=== PATIENT | male | born 1970 | race Native Hawaiian/Other Pacific Islander ===

== ENCOUNTER 2017-06-05 07:24 | Inpatient (IN) | payer OTHER ==
[2017-06-05 07:24] VITALS: BMI 30.7
--- NOTE | 2017-06-05 07:38 | C.PDOC ---
History Of Present Illness 47 yo male with PMH left fransico-colectomy for removal of adenocarcinoma on 07/12 c /o abdominal pain since last night. 03/05. Took pepto last night without relief. BM soft yesterday. No complaints. No fever. Vomited x 1 yesterday. Scheduled for colonoscopy this week with Dr Schwartz. Time Seen by Provider: 06/05/17 07:35 Chief Complaint (Nursing): Abdominal Pain History Per: Patient History/Exam Limitations: no limitations Onset/Duration Of Symptoms: Days (yesterday) Current Symptoms Are (Timing): Still Present Location Of Pain/Discomfort: RUQ, LUQ Quality Of Discomfort: "Pain" Past Medical History Vital Signs: Last Vital Signs Temp 97.9 F 06/05/17 15:07 Pulse 81 06/05/17 15:07 Resp 16 06/05/17 15:07 BP 148/78 06/05/17 15:07 Pulse Ox 98 06/05/17 14:40 - Medical History PMH: Anemia, Anxiety, Colonic Polyps (CANCEROUS), Gastritis Denies: Crohn's Disease, Diverticulitis, Fractures, Gall Bladder Disease, HIV , Pancreatitis, Chronic Kidney Disease, TIA Surgical History: Endoscopy - [facility] Procedures RESECTION OF APPENDIX, OPEN APPROACH (07/12/16) RESECTION OF LEFT LARGE INTESTINE, OPEN APPROACH (07/12/16) Family History: States: Unknown Family Hx - Social History Hx Tobacco Use: No Hx Alcohol Use: No Hx Substance Use: No - Immunization History Hx Tetanus Toxoid Vaccination: No Hx Influenza Vaccination: No Hx Pneumococcal Vaccination: No Review Of Systems Except As Marked, All Systems Reviewed And Found Negative. Constitutional: Negative for: Fever Gastrointestinal: Positive for: Vomiting, Abdominal Pain Physical Exam - Physical Exam Appears: Well, Non-toxic, No Acute Distress Skin: Normal Color, Warm, Dry Head: Atraumatic, Normacephalic Eye(s): bilateral: Normal Inspection, EOMI Nose: Normal Oral Mucosa: Moist Neck: Normal, Normal ROM, Supple Chest: Symmetrical Cardiovascular: Rhythm Regular Respiratory: Normal Breath Sounds Gastrointestinal/Abdominal: Soft, Tenderness (upper quadrant tenderness) Back: No CVA Tenderness, No Vertebral Tenderness Extremity: Normal ROM Neurological/Psych: Oriented x3, Normal Speech ED Course And Treatment - Laboratory Results Result Diagrams: 06/05/17 08:01 10/10/17 08:01 O2 Sat by Pulse Oximetry: 98 Progress Note: Toradol, Zofran, and pepcid ordered. On re-evaluation, pain improved. CT evaluated. Case discussed with Dr Rg who evaluated pt at bedside and requested medical admission. Case discussed with Dr castelan, agreeed upon plan and admission. Case discussed with Dr Cisse, agreed upon consult. Disposition - Disposition Disposition: HOSPITALIZED Disposition Time: 15:00 Condition: STABLE - Clinical Impression Clinical Impression: Small bowel obstruction
[2017-06-05] MEDS ORDERED: Sodium Chloride 0.9% 1,000 ML IV ONE (07:46)
[2017-06-05] MEDS ORDERED: Iohexol 240 (50 ml) PO STA (07:46)
[2017-06-05] MEDS ORDERED: Iohexol 240 (50 ml) ONE (08:04)
[2017-06-05] MEDS ORDERED: Sodium Chloride 0.9% 1,000 ML ONE (08:05)
[2017-06-05 08:06] LABS: BASO % 0.2 % (0.0-2.0); EOS % 0.4 % (0.0-4.0); HEMATOCRIT 48.3 % (35.0-51.0); LYMPH # 1.5 K/uL (1.0-4.3); MEAN CELL VOLUME 83.8 fL (80.0-94.0); MEAN CORPUSCULAR HEMOGLOBIN 28.3 pg (27.0-31.0); MEAN CORPUSCULAR HGB CONC 33.7 g/dL (33.0-37.0); MEAN PLATELET VOLUME 8.3 fL (7.2-11.7); MONO # 0.6 K/uL (0.0-0.8); MONO % 5.1 % (0.0-10.0); RED CELL DISTRIBUTION WIDTH 13.1 % (11.5-14.5); WHITE BLOOD COUNT 12.2 K/uL (4.8-10.8)
[2017-06-05 08:29] LABS: CHLORIDE 99 mmol/L (98-107); POTASSIUM 3.8 mmol/L (3.6-5.2); SODIUM 139 mmol/L (132-148)
[2017-06-05 08:31] LABS: GFR AFRICAN-AMERICAN > 60
[2017-06-05 08:32] LABS: ALB/GLOB RATIO 1.1 (1.0-2.1); ALKALINE PHOSPHATASE 62 U/L (38-126); ALT/SGPT 42 U/L (21-72); AST/SGOT 32 U/L (17-59); BILIRUBIN,TOTAL 2.5 mg/dL (0.2-1.3); BLOOD UREA NITROGEN 14 mg/dL (9-20); CALCIUM 9.9 mg/dl (8.6-10.4); CARBON DIOXIDE 26 mmol/L (22-30); GLUCOSE,RANDOM 117 mg/dL (75-110); TOTAL PROTEIN 8.9 g/dL (6.3-8.3)
[2017-06-05 09:45] LABS: RBC URINE 3 /hpf (0-3); URINE BILIRUBIN NEGATIVE (NEGATIVE); URINE BLOOD NEGATIVE (NEGATIVE); URINE COLOR Yellow (YELLOW); URINE GLUCOSE (UA) NORMAL (Normal); URINE KETONE NEGATIVE (NEGATIVE); URINE LEUKOCYTE ESTERASE NEG Leu/uL (Negative); URINE PROTEIN 1+ mg/dL (NEGATIVE); WBC URINE 1 /hpf (0-5)
[2017-06-05] MEDS ORDERED: Iodixanol 320 MG/ML 100 ML BOTTLE IV ONE (09:51)
--- NOTE | 2017-06-05 11:15 | CT ---
PROCEDURE: CT Abdomen and Pelvis with oral and IV contrast. HISTORY: abd pain COMPARISON: CT abdomen and pelvis performed 07/16/16 TECHNIQUE: Contiguous axial images of the abdomen and pelvis. Oral and IV contrast was administered. Coronal and Sagittal reformats generated and reviewed. Contrast dose: 100 ccVisipaque 320 Radiation dose: Total exam DLP = 1139.75 mGy-cm. This CT exam was performed using one or more of the following dose reduction techniques: Automated exposure control, adjustment of the mA and/or kV according to patient size, and/or use of iterative reconstruction technique. FINDINGS: LOWER THORAX: No visible consolidation, pleural effusion, or pneumothorax. LIVER: Hypoattenuation of the liver compatible with hepatic steatosis. 5 mm right hepatic lobe hypodensity, too small to characterize. GALLBLADDER AND BILE DUCTS: Unremarkable. PANCREAS: Unremarkable. SPLEEN: Unremarkable. ADRENALS: Unremarkable. KIDNEYS AND URETERS: The kidneys enhance symmetrically. No hydronephrosis or obstructing renal calculus. X mm and 8 mm right renal hypodensities, too small to characterize. BLADDER: Under distended urinary bladder appears otherwise unremarkable. REPRODUCTIVE: The prostate gland measures approximately 4.0 x 4.5 cm and contains calcification. APPENDIX: The appendix appears within normal limits of caliber. No secondary signs of acute appendicitis. BOWEL: Dilated fluid-filled small bowel loops concerning for small bowel obstruction. The site of obstruction appears within the anterior mid abdomen near the umbilicus (series 3, image 124 through 129). Transition point noted near site of rectus diastases. PERITONEUM: Small pelvic free fluid. No definite free air. LYMPH NODES: No bulky lymphadenopathy identified. VASCULATURE: No aortic aneurysm. BONES: Degenerative changes. Posterior osteophyte formation at T12-L1. OTHER FINDINGS: Rectus diastases. IMPRESSION: Dilated small bowel loops with decompressed small bowel lobes distally and probable transition point within the mid anterior abdomen as above consistent with small bowel obstruction. Small pelvic free fluid. Hepatic steatosis. Too small to characterize hepatic and right renal hypodensities.
[2017-06-05] MEDS: Sodium Chloride 0.9% 1,000 ML IV SCH (16:56)
--- NOTE | 2017-06-05 17:17 | CP.PCM.CON ---
History of Present Illness - History of Present Illness History of Present Illness: General Surgery Dr. Rg 47 y/o M w/ PMHx of Colon Ca presents to the ED c/o abd pain x24hrs. Pt states that pain started yesterday afternoon and has progressively worsened. Pain diffuse but worse in epigastric region. Pt admits to 1 episode NBNB emesis last evening. Pt reports normal bowel mvts and has been passing flatus. Pt denies F/C , CP, SOB, D/C, dysuria. Pt admits to BM x [address] scan this AM. No further N /V. PMHx: colon adenocarcinoma Meds: reviewed in chart NKDA PSHx: L fransico-colectomy SHx: denies tobacco, EtOH, drugs FHx: CAD - paternal Review of Systems - Review of Systems All systems: reviewed and no additional remarkable complaints except (see HPI) Past Patient History - Past Medical History & Family History Past Medical History?: No - Past Social History Smoking Status: Never Smoked - CARDIAC Hx Heart Attack: No - PULMONARY Hx Respiratory Disorders: No - NEUROLOGICAL Hx Transient Ischemic Attacks (TIA): No - HEENT Hx HEENT Problems: No - RENAL Hx Chronic Kidney Disease: No - ENDOCRINE/METABOLIC Hx Endocrine Disorders: No - HEMATOLOGICAL/ONCOLOGICAL Hx Anemia: Yes Hx Human Immunodeficiency Virus (HIV): No - INTEGUMENTARY Hx Dermatological Problems: No - MUSCULOSKELETAL/RHEUMATOLOGICAL Hx Fractures: No - GASTROINTESTINAL Hx Crohn's Disease: No Hx Diverticulitis: No Hx Gall Bladder Disease: No Hx Gastritis: Yes Hx Pancreatitis: No - GENITOURINARY/GYNECOLOGICAL Hx Genitourinary Disorders: No - PSYCHIATRIC Hx Anxiety: Yes Hx Substance Use: No - SURGICAL HISTORY Hx Surgeries: Yes Other/Comment: COLECTOMY 06/2016 - ANESTHESIA Hx Anesthesia: Yes Hx Anesthesia Reactions: No Hx Malignant Hyperthermia: No Meds Allergies/Adverse Reactions: Allergies Allergy/AdvReac Type Severity Reaction Status Date / Time No Known Allergies Allergy Verified 10/18/16 07:59 - Medications Medications: Current Medications Sodium Chloride (Sodium Chloride 0.9%) 1,000 mls @ 100 mls/hr IV .Q10H NATHALIE Last Admin: 06/05/17 16:56 Dose: 100 mls/hr Physical Exam - Constitutional Appears: Non-toxic, No Acute Distress - Head Exam Head Exam: NORMAL INSPECTION - Eye Exam Eye Exam: Normal appearance - ENT Exam ENT Exam: Mucous Membranes Moist - Respiratory Exam Respiratory Exam: NORMAL BREATHING PATTERN. absent: Accessory Muscle Use, Respiratory Distress - Cardiovascular Exam Cardiovascular Exam: absent: Bradycardia, Tachycardia - GI/Abdominal Exam GI & Abdominal Exam: Distended (mild), Soft, Tenderness (minimal epigastric TTP) . absent: Firm, Guarding, Rebound, Rigid - Extremities Exam Extremities exam: Positive for: normal inspection - Neurological Exam Neurological exam: Alert, Oriented x3 - Psychiatric Exam Psychiatric exam: Normal Affect, Normal Mood - Skin Skin Exam: Dry, Intact, Normal Color, Warm Results - Vital Signs Recent Vital Signs: Last Vital Signs Temp 97.9 F 06/05/17 15:07 Pulse 81 06/05/17 15:07 Resp 16 06/05/17 15:07 BP 148/78 06/05/17 15:07 Pulse Ox 98 06/05/17 16:22 - Labs Result Diagrams: 06/05/17 08:01 06/05/17 08:01 Labs: Laboratory Results - last 24 hr 06/05/17 06/05/17 06/05/17 08:01 08:01 09:15 WBC 12.2 H D RBC 5.76 Hgb 16.3 D Hct 48.3 MCV 83.8 MCH 28.3 MCHC 33.7 RDW 13.1 Plt Count 236 MPV 8.3 Neut % (Auto) 82.3 H Lymph % (Auto) 12.0 L [place] % (Auto) 5.1 Eos % (Auto) 0.4 Baso % (Auto) 0.2 Neut # 10.0 H Lymph # 1.5 Wood # 0.6 Eos # 0.0 Baso # 0.0 Sodium 139 Potassium 3.8 Chloride 99 Carbon Dioxide 26 Anion Gap 19 BUN 14 Creatinine 0.8 Est GFR ( Amer) > 60 Est GFR (Non-Af Amer) > 60 Random Glucose 117 H Calcium 9.9 Total Bilirubin 2.5 H AST 32 ALT 42 Alkaline Phosphatase 62 Total Protein 8.9 H Albumin 4.7 Globulin 4.2 H Albumin/Globulin Ratio 1.1 Lipase 90 Urine Color Yellow Urine Clarity Clear Urine pH 7.0 Ur Specific [place] 1.024 Urine Protein 1+ H Urine Glucose (UA) Normal Urine Ketones Negative Urine Blood Negative Urine Nitrate Negative Urine Bilirubin Negative Urine Urobilinogen 4.0 Ur Leukocyte Esterase Neg Urine WBC (Auto) 1 Urine RBC (Auto) 3 - Imaging and Cardiology CT scan - abdomen Status: Image reviewed by me, Report reviewed by me Assessment & Plan - Assessment and Plan (Free Text) Assessment: 47 y/o M w/ abd pain likely 2/2 SBO - NPO, IVF - pain management - anti-emetic - NGT if vomiting - monitor Bowel fxn Pt discussed w/ Dr. Ifrah Montano DO PGY2
--- NOTE | 2017-06-05 18:43 | CON ---
DATE: ONCOLOGY CONSULTATION HISTORY OF PRESENT ILLNESS: This is a 47-year-old man who has abdominal pain. The patient had colon carcinoma resected in June of 2016. He had negative lymph nodes and there was no adjuvant therapy given to him. I last him in February 2017, his CA level was normal, his labs were normal and he was doing well. Evidently around 5 o'clock in the afternoon yesterday, he started developing abdominal pains. He threw up his food that he had eaten earlier at around midnight and he came to the hospital today with abdominal pain. PHYSICAL EXAMINATION SKIN: No petechiae and no bruises. HEENT: Anicteric. NODES: Nonpalpable in axillary, cervical, supraclavicular, or inguinal regions. LUNGS: Clear. ABDOMEN: Shows no liver or spleen. No rebound. EXTREMITIES: No edema. CENTRAL NERVOUS SYSTEM: No focal findings. ASSESSMENT AND PLAN: The patient is able to pass his gas and is relatively comfortable. At this point, I believe a diagnosis is adhesions and cancer and I think at this point, we will be treating him conservatively. Dr. Rg is seeing him and will be watching for that. Eren Roland MD
--- NOTE | 2017-06-05 20:13 | CP.PCM.HP ---
Past Patient History - Past Medical History & Family History Past Medical History?: No - Past Social History Smoking Status: Never Smoked - CARDIAC Hx Heart Attack: No - PULMONARY Hx Respiratory Disorders: No - NEUROLOGICAL Hx Transient Ischemic Attacks (TIA): No - HEENT Hx HEENT Problems: No - RENAL Hx Chronic Kidney Disease: No - ENDOCRINE/METABOLIC Hx Endocrine Disorders: No - HEMATOLOGICAL/ONCOLOGICAL Hx Anemia: Yes Hx Human Immunodeficiency Virus (HIV): No - INTEGUMENTARY Hx Dermatological Problems: No - MUSCULOSKELETAL/RHEUMATOLOGICAL Hx Fractures: No - GASTROINTESTINAL Hx Crohn's Disease: No Hx Diverticulitis: No Hx Gall Bladder Disease: No Hx Gastritis: Yes Hx Pancreatitis: No - GENITOURINARY/GYNECOLOGICAL Hx Genitourinary Disorders: No - PSYCHIATRIC Hx Anxiety: Yes Hx Substance Use: No - SURGICAL HISTORY Hx Surgeries: Yes Other/Comment: COLECTOMY 06/2016 - ANESTHESIA Hx Anesthesia: Yes Hx Anesthesia Reactions: No Hx Malignant Hyperthermia: No Meds Allergies/Adverse Reactions: Allergies Allergy/AdvReac Type Severity Reaction Status Date / Time No Known Allergies Allergy Verified 10/18/16 07:59 Physical Exam - Constitutional Appears: Well - Head Exam Head Exam: ATRAUMATIC, NORMAL INSPECTION, NORMOCEPHALIC - Eye Exam Eye Exam: EOMI, Normal appearance, PERRL Pupil Exam: NORMAL ACCOMODATION, PERRL - ENT Exam ENT Exam: Mucous Membranes Moist, Normal Exam - Neck Exam Neck exam: Positive for: Normal Inspection - Respiratory Exam Respiratory Exam: Decreased Breath Sounds - Cardiovascular Exam Cardiovascular Exam: REGULAR RHYTHM, +S1, +S2 - GI/Abdominal Exam GI & Abdominal Exam: Diminished Bowel Sounds, Soft - Rectal Exam Rectal Exam: Deferred Results - Vital Signs Recent Vital Signs: Last Vital Signs Temp 98.1 F 06/05/17 15:13 Pulse 77 06/05/17 15:13 Resp 20 06/05/17 15:13 BP 130/84 06/05/17 15:13 Pulse Ox 98 06/05/17 16:22 - Labs Result Diagrams: 06/05/17 08:01 06/05/17 08:01 Labs: Laboratory Results - last 24 hr 06/05/17 06/05/17 06/05/17 08:01 08:01 09:15 WBC 12.2 H D RBC 5.76 Hgb 16.3 D Hct 48.3 MCV 83.8 MCH 28.3 MCHC 33.7 RDW 13.1 Plt Count 236 MPV 8.3 Neut % (Auto) 82.3 H Lymph % (Auto) 12.0 L [place] % (Auto) 5.1 Eos % (Auto) 0.4 Baso % (Auto) 0.2 Neut # 10.0 H Lymph # 1.5 [place] # 0.6 Eos # 0.0 Baso # 0.0 Sodium 139 Potassium 3.8 Chloride 99 Carbon Dioxide 26 Anion Gap 19 BUN 14 Creatinine 0.8 Est GFR ( Amer) > 60 Est GFR (Non-Af Amer) > 60 Random Glucose 117 H Calcium 9.9 Total Bilirubin 2.5 H AST 32 ALT 42 Alkaline Phosphatase 62 Total Protein 8.9 H Albumin 4.7 Globulin 4.2 H Albumin/Globulin Ratio 1.1 Lipase 90 Urine Color Yellow Urine Clarity Clear Urine pH 7.0 Ur Specific [place] 1.024 Urine Protein 1+ H Urine Glucose (UA) Normal Urine Ketones Negative Urine Blood Negative Urine Nitrate Negative Urine Bilirubin Negative Urine Urobilinogen 4.0 Ur Leukocyte Esterase Neg Urine WBC (Auto) 1 Urine RBC (Auto) 3
--- NOTE | 2017-06-05 20:34 | CP.PCM.CON ---
History of Present Illness - History of Present Illness History of Present Illness: Patient is a 47 yo male well known to me admitted with acute onset of abdominal pain last evening associated with Nausea that got worse in intensity. Came to ER where noted to have a high WBC count and CT shows small bowel obstruction in the region of the rectus diastasis and umbilical area post op for a left fransico- colectomy in June 2016 for an adenocarcinoma of the distal descending colon. Patient was due to have a repeat colonoscopy in [facility], [place] to follow up on his tumor and a distal polyp that was removed. Pathology from the surgery [facility] this [facility]. Patient admits to passing flatus and has had two bowel movements as well. Seen by surgery and advised to observe and hydrate. Patient also with known GERD, Danielle esophagitis and H pylori gastritis treated by triple therapy earlier this year. (09/2016). Pain is somewhat better as per nursing staff. Review of Systems - Constitutional Constitutional: absent: Fever, Weakness - Cardiovascular Cardiovascular: absent: Chest Pain, Dyspnea, Palpitations - Respiratory Respiratory: absent: Cough, Snoring - Gastrointestinal Gastrointestinal: As Per HPI, Bloating, Nausea. absent: Dysphagia, Hematemesis , Melena Past Patient History - Infectious Disease Hx of Infectious Diseases: None - Past Medical History & Family History Past Medical History?: No - Past Social History Smoking Status: Never Smoked Alcohol: None Drugs: Denies - CARDIAC Hx Cardiac Disorders: No Hx Heart Attack: No - PULMONARY Hx Respiratory Disorders: No - NEUROLOGICAL Hx Neurological Disorder: No Hx Transient Ischemic Attacks (TIA): No - HEENT Hx HEENT Problems: No - RENAL Hx Chronic Kidney Disease: No - ENDOCRINE/METABOLIC Hx Endocrine Disorders: No - HEMATOLOGICAL/ONCOLOGICAL Hx Anemia: Yes Hx Cancer: Yes Hx Cirrhosis: No Hx Hepatitis A: No Hx Hepatitis B: No Hx Hepatitis C: No Hx Human Immunodeficiency Virus (HIV): No - INTEGUMENTARY Hx Dermatological Problems: No - MUSCULOSKELETAL/RHEUMATOLOGICAL Hx Fractures: No - GASTROINTESTINAL Hx Gastrointestinal Disorders: Yes Hx Bowel Surgery: Yes Hx Crohn's Disease: No Hx Diverticulitis: No Hx Gall Bladder Disease: No Hx Gastritis: Yes Hx Gastroesophageal Reflux: Yes Hx Pancreatitis: No Other/Comment: Colon Cancer. H pylori gastritis, treated. Esophageal Candidiasis - GENITOURINARY/GYNECOLOGICAL Hx Genitourinary Disorders: No - PSYCHIATRIC Hx Anxiety: Yes Hx Substance Use: No - SURGICAL HISTORY Hx Surgeries: Yes Other/Comment: Left hemicolectomy 06/2016 - ANESTHESIA Hx Anesthesia: Yes Hx Anesthesia Reactions: No Hx Malignant Hyperthermia: No Meds Allergies/Adverse Reactions: Allergies Allergy/AdvReac Type Severity Reaction Status Date / Time No Known Allergies Allergy Verified 10/18/16 07:59 - Medications Medications: Current Medications Sodium Chloride (Sodium Chloride 0.9%) 1,000 mls @ 100 mls/hr IV .Q10H NATHALIE Last Admin: 06/05/17 16:56 Dose: 100 mls/hr Ketorolac Tromethamine (Toradol) 30 mg IVP Q6 PRN PRN Reason: Pain, moderate (4-7) Ondansetron HCl (Zofran Inj) 4 mg IVP Q4 PRN PRN Reason: Nausea/Vomiting Physical Exam - Constitutional Appears: No Acute Distress - Head Exam Head Exam: ATRAUMATIC - Respiratory Exam Respiratory Exam: Clear to Auscultation Bilateral, NORMAL BREATHING PATTERN - Cardiovascular Exam Cardiovascular Exam: REGULAR RHYTHM, +S1 - GI/Abdominal Exam GI & Abdominal Exam: Distended, Hyperactive Bowel Sounds, Tenderness. absent: Mass, Pulsatile Mass Additional comments: large midline scar - Rectal Exam Rectal Exam: Deferred - Extremities Exam Extremities exam: Positive for: normal inspection - Neurological Exam Neurological exam: Alert, Oriented x3 - Psychiatric Exam Psychiatric exam: Normal Affect, Normal Mood - Skin Skin Exam: Dry, Warm Results - Vital Signs Recent Vital Signs: Last Vital Signs Temp 98.1 F 06/05/17 15:13 Pulse 77 06/05/17 15:13 Resp 20 06/05/17 15:13 BP 130/84 06/05/17 15:13 Pulse Ox 98 06/05/17 16:22 - Labs Result Diagrams: 06/05/17 08:01 06/05/17 08:01 Labs: Laboratory Results - last 24 hr 06/05/17 06/05/17 06/05/17 08:01 08:01 09:15 WBC 12.2 H D RBC 5.76 Hgb 16.3 D Hct 48.3 MCV 83.8 MCH 28.3 MCHC 33.7 RDW 13.1 Plt Count 236 MPV 8.3 Neut % (Auto) 82.3 H Lymph % (Auto) 12.0 L [place] % (Auto) 5.1 Eos % (Auto) 0.4 Baso % (Auto) 0.2 Neut # 10.0 H Lymph # 1.5 [place] # 0.6 Eos # 0.0 Baso # 0.0 Sodium 139 Potassium 3.8 Chloride 99 Carbon Dioxide 26 Anion Gap 19 BUN 14 Creatinine 0.8 Est GFR ( Amer) > 60 Est GFR (Non-Af Amer) > 60 Random Glucose 117 H Calcium 9.9 Total Bilirubin 2.5 H AST 32 ALT 42 Alkaline Phosphatase 62 Total Protein 8.9 H Albumin 4.7 Globulin 4.2 H Albumin/Globulin Ratio 1.1 Lipase 90 Urine Color Yellow Urine Clarity Clear Urine pH 7.0 Ur Specific [place] 1.024 Urine Protein 1+ H Urine Glucose (UA) Normal Urine Ketones Negative Urine Blood Negative Urine Nitrate Negative Urine Bilirubin Negative Urine Urobilinogen 4.0 Ur Leukocyte Esterase Neg Urine WBC (Auto) 1 Urine RBC (Auto) 3 - Imaging and Cardiology CT scan - abdomen Status: Image reviewed by me, Report reviewed by me (SBO) Assessment & Plan (1) Small bowel obstruction due to adhesions Assessment and Plan: Agree with IV hydration NPO NGT for nausea and vomiting if needed Repeat Obstructive Series in am Surgical Consult done by Dr Rg and his team. Status: Acute (2) H/O colon cancer, stage IV Assessment and Plan: Repeat colonoscopy planned for 06/2017 as outpatient Status: Acute (3) H/O adenomatous polyp of colon Assessment and Plan: Repeat colonoscopy 06/2017, prior polyp removed before colon resection in rectal area. Status: Acute (4) Helicobacter pylori (H. pylori) infection Assessment and Plan: Check stool for H pylori fecal antigen as eradication has not yet been confirmed. Status: Acute (5) GERD (gastroesophageal reflux disease) Assessment and Plan: No current symptoms. PPI as needed Status: Acute
[2017-06-06] MEDS: Sodium Chloride 0.9% 1,000 ML IV SCH ×2 (03:00→18:38)
--- NOTE | 2017-06-06 08:12 | CP.PCM.PN ---
Subjective - Date & Time of Evaluation Date of Evaluation: 06/06/17 Time of Evaluation: 07:00 - Subjective Subjective: Surgery Note for Dr. Rg Patient seen and examined at bedside and in no acute distress. Patient says he had a total of 3 bowel movements yesterday. Patient has much less abdominal pain today. Patient denies nausea/ vomiting. Objective - Vital Signs/Intake and Output Vital Signs (last 24 hours): Temp Pulse Resp BP Pulse Ox 97.8 F 70 20 132/82 95 06/05/17 23:00 06/05/17 23:00 06/05/17 23:00 06/05/17 23:00 06/05/17 23:00 Intake and Output: 06/06/17 06/06/17 06:59 18:59 Intake Total 1400 Balance 1400 - Medications Medications: Current Medications Sodium Chloride (Sodium Chloride 0.9%) 1,000 mls @ 100 mls/hr IV .Q10H NATHALIE Last Admin: 06/06/17 03:00 Dose: 100 mls/hr Ketorolac Tromethamine (Toradol) 30 mg IVP Q6 PRN PRN Reason: Pain, moderate (4-7) Last Admin: 06/05/17 23:58 Dose: 30 mg Ondansetron HCl (Zofran Inj) 4 mg IVP Q4 PRN PRN Reason: Nausea/Vomiting - Labs Labs: 06/05/17 08:01 06/05/17 08:01 - Constitutional Appears: Non-toxic, No Acute Distress - Head Exam Head Exam: ATRAUMATIC, NORMAL INSPECTION, NORMOCEPHALIC - Eye Exam Eye Exam: EOMI, Normal appearance - ENT Exam ENT Exam: Mucous Membranes Moist - Respiratory Exam Respiratory Exam: NORMAL BREATHING PATTERN. absent: Accessory Muscle Use, Respiratory Distress - Cardiovascular Exam Cardiovascular Exam: +S1, +S2 - GI/Abdominal Exam GI & Abdominal Exam: Soft, Tenderness Additional comments: mild RLQ tenderness midline scar - Neurological Exam Neurological Exam: Alert, Awake, Oriented x3 - Psychiatric Exam Psychiatric exam: Normal Affect, Normal Mood - Skin Skin Exam: Intact, Normal Color, Warm Assessment and Plan - Assessment and Plan (Free Text) Assessment: 47 y/o M w/ abd pain likely 2/2 SBO - IVF - pain management - anti-emetic - monitor Bowel fxn - started on CLD - monitor for nausea/ vomiting Pt discussed w/ Dr. Rg
[2017-06-06 08:34] LABS: BASO % 0.5 % (0.0-2.0); EOS # 0.2 K/uL (0.0-0.7); EOS % 2.3 % (0.0-4.0); HEMATOCRIT 42.1 % (35.0-51.0); LYMPH # 1.6 K/uL (1.0-4.3); LYMPH % 22.8 % (20.0-40.0); MEAN CELL VOLUME 84.4 fL (80.0-94.0); MEAN CORPUSCULAR HEMOGLOBIN 28.1 pg (27.0-31.0); MEAN CORPUSCULAR HGB CONC 33.2 g/dL (33.0-37.0); MEAN PLATELET VOLUME 8.2 fL (7.2-11.7); MONO # 0.6 K/uL (0.0-0.8); MONO % 7.8 % (0.0-10.0); NRBC % 0.1 % (0.0-2.0); RED CELL DISTRIBUTION WIDTH 12.7 % (11.5-14.5); WHITE BLOOD COUNT 7.1 K/uL (4.8-10.8)
[2017-06-06 08:50] LABS: CHLORIDE 103 mmol/L (98-107); SODIUM 136 mmol/L (132-148)
[2017-06-06 08:51] LABS: POTASSIUM 3.8 mmol/L (3.6-5.2)
[2017-06-06 08:53] LABS: ALKALINE PHOSPHATASE 49 U/L (38-126); ALT/SGPT 40 U/L (21-72); AST/SGOT 22 U/L (17-59); BILIRUBIN,TOTAL 2.4 mg/dL (0.2-1.3); BLOOD UREA NITROGEN 17 mg/dL (9-20); CARBON DIOXIDE 24 mmol/L (22-30); GFR AFRICAN-AMERICAN > 60; GLUCOSE,RANDOM 87 mg/dL (75-110); TOTAL PROTEIN 7.2 g/dL (6.3-8.3)
[2017-06-06 09:24] LABS: CARCINOEMBRYONIC ANTIGEN 0.4 ng/mL (0-3.0)
--- NOTE | 2017-06-06 10:47 | CP.PCM.PN ---
Subjective - Date & Time of Evaluation Date of Evaluation: 06/06/17 Time of Evaluation: 10:44 - Subjective Subjective: Less pain, no N/V, three stools thus far Objective - Vital Signs/Intake and Output Vital Signs (last 24 hours): Temp Pulse Resp BP Pulse Ox 97.4 F L 64 20 129/86 96 06/06/17 08:22 06/06/17 08:22 06/06/17 08:22 06/06/17 08:22 06/06/17 08:22 Intake and Output: 06/06/17 06/06/17 06:59 18:59 Intake Total 1400 Balance 1400 - Medications Medications: Current Medications Sodium Chloride (Sodium Chloride 0.9%) 1,000 mls @ 100 mls/hr IV .Q10H NATHALIE Last Admin: 06/06/17 03:00 Dose: 100 mls/hr Ketorolac Tromethamine (Toradol) 30 mg IVP Q6 PRN PRN Reason: Pain, moderate (4-7) Last Admin: 06/05/17 23:58 Dose: 30 mg Ondansetron HCl (Zofran Inj) 4 mg IVP Q4 PRN PRN Reason: Nausea/Vomiting - Labs Labs: 06/06/17 08:29 06/06/17 08:29 - Constitutional Appears: No Acute Distress - Head Exam Head Exam: ATRAUMATIC, NORMOCEPHALIC - Respiratory Exam Respiratory Exam: NORMAL BREATHING PATTERN - Cardiovascular Exam Cardiovascular Exam: REGULAR RHYTHM, +S1 - GI/Abdominal Exam GI & Abdominal Exam: Distended, Soft, Hyperactive Bowel Sounds. absent: Tenderness Additional comments: less tender and less distended. - Extremities Exam Extremities Exam: Normal Inspection Assessment and Plan (1) Small bowel obstruction due to adhesions Assessment & Plan: Await follow up Xrays Clinically improving Begin clear liquids if ok with Surgery Status: Acute (2) H/O colon cancer, stage IV Assessment & Plan: Stage unclear until pathology report can be reviewed. NOT stage IV. Status: Resolved (3) H/O adenomatous polyp of colon Status: Resolved (4) Helicobacter pylori (H. pylori) infection Assessment & Plan: awaiting stool test to assess eradication. (May be altered by antibiotic or PPI and need to be repeated at time of colonoscopy) Status: Resolved (5) GERD (gastroesophageal reflux disease) Status: Chronic
--- NOTE | 2017-06-06 14:02 | RAD ---
Abdomen four views History: Small bowel obstruction. Comparison: None available. Findings: Few distended loops of small bowel seen within the upper mid abdomen. Contrast and fecal retention within the colon. Calcified phleboliths in the pelvis. Degenerative changes in the spine and bilateral hips. Lung ramos are clear. Heart size within normal limits. Impression: Nonspecific bowel gas pattern with a few distended loops of small bowel in the upper and mid abdomen.
--- NOTE | 2017-06-06 19:20 | CP.PCM.PN ---
Subjective - Date & Time of Evaluation Date of Evaluation: 06/06/17 Time of Evaluation: 11:40 - Subjective Subjective: clinically same Objective - Vital Signs/Intake and Output Vital Signs (last 24 hours): Temp Pulse Resp BP Pulse Ox 97.9 F 65 18 135/84 98 06/06/17 15:16 06/06/17 15:16 06/06/17 15:16 06/06/17 15:16 06/06/17 15:16 - Medications Medications: Current Medications Sodium Chloride (Sodium Chloride 0.9%) 1,000 mls @ 100 mls/hr IV .Q10H NATHALIE Last Admin: 06/06/17 18:38 Dose: 100 mls/hr Ketorolac Tromethamine (Toradol) 30 mg IVP Q6 PRN PRN Reason: Pain, moderate (4-7) Last Admin: 06/05/17 23:58 Dose: 30 mg Ondansetron HCl (Zofran Inj) 4 mg IVP Q4 PRN PRN Reason: Nausea/Vomiting - Labs Labs: 06/06/17 08:29 06/06/17 08:29 - Constitutional Appears: Well - Head Exam Head Exam: ATRAUMATIC, NORMAL INSPECTION, NORMOCEPHALIC - Eye Exam Eye Exam: EOMI, Normal appearance, PERRL Pupil Exam: NORMAL ACCOMODATION, PERRL - ENT Exam ENT Exam: Mucous Membranes Moist, Normal Exam - Neck Exam Neck Exam: Full ROM, Normal Inspection. absent: Lymphadenopathy - Respiratory Exam Respiratory Exam: Decreased Breath Sounds - Cardiovascular Exam Cardiovascular Exam: REGULAR RHYTHM, +S1, +S2 - GI/Abdominal Exam GI & Abdominal Exam: Soft, Diminished Bowel Sounds - Rectal Exam Rectal Exam: Deferred
[2017-06-07] MEDS: Sodium Chloride 0.9% 1,000 ML IV SCH (04:00)
--- NOTE | 2017-06-07 11:20 | CP.PCM.PN ---
Subjective - Date & Time of Evaluation Date of Evaluation: 06/07/17 Time of Evaluation: 11:18 - Subjective Subjective: Occasional pain but tolerating diet and moving bowels, passing flatus Objective - Vital Signs/Intake and Output Vital Signs (last 24 hours): Temp Pulse Resp BP Pulse Ox 97.8 F 60 20 138/89 96 06/07/17 08:47 06/07/17 08:47 06/07/17 08:47 06/07/17 08:47 06/07/17 08:47 Intake and Output: 06/07/17 06/07/17 06:59 18:59 Intake Total 2200 Balance 2200 - Medications Medications: Current Medications Sodium Chloride (Sodium Chloride 0.9%) 1,000 mls @ 100 mls/hr IV .Q10H NATHALIE Last Admin: 06/07/17 04:00 Dose: 100 mls/hr Ketorolac Tromethamine (Toradol) 30 mg IVP Q6 PRN PRN Reason: Pain, moderate (4-7) Last Admin: 06/05/17 23:58 Dose: 30 mg Ondansetron HCl (Zofran Inj) 4 mg IVP Q4 PRN PRN Reason: Nausea/Vomiting - Labs Labs: 06/06/17 08:29 06/06/17 08:29 - Constitutional Appears: No Acute Distress - Head Exam Head Exam: ATRAUMATIC, NORMOCEPHALIC - Eye Exam Eye Exam: EOMI Pupil Exam: NORMAL ACCOMODATION - Respiratory Exam Respiratory Exam: NORMAL BREATHING PATTERN - Cardiovascular Exam Cardiovascular Exam: REGULAR RHYTHM, +S1 - GI/Abdominal Exam GI & Abdominal Exam: Soft, Normal Bowel Sounds. absent: Tenderness, Mass, Rebound - Extremities Exam Extremities Exam: Normal Inspection Assessment and Plan (1) Small bowel obstruction due to adhesions Assessment & Plan: Clinically improved Awaiting surgical follow up Outpatient follow up with me in two weeks Colonoscopy next month as planned Status: Acute (2) H/O colon cancer, stage IV Assessment & Plan: Colonoscopy next month Status: Resolved (3) H/O adenomatous polyp of colon Status: Resolved (4) Helicobacter pylori (H. pylori) infection Assessment & Plan: Check stool Hp results Status: Resolved (5) GERD (gastroesophageal reflux disease) Status: Chronic
--- NOTE | 2017-06-07 11:54 | CP.PCM.PN ---
Subjective - Date & Time of Evaluation Date of Evaluation: 06/07/17 Time of Evaluation: 11:52 - Subjective Subjective: General Surgery Note for Dr. Rg Patient seen and examined today. No acute event overnight. Patient has no complaints today. patient is tolerating regular diet, ambulating without difficulty and having BMs. Denies f/c, cp, sob, abd pain, n/v/d. Objective - Vital Signs/Intake and Output Vital Signs (last 24 hours): Temp Pulse Resp BP Pulse Ox 97.8 F 60 20 138/89 96 06/07/17 08:47 06/07/17 08:47 06/07/17 08:47 06/07/17 08:47 06/07/17 08:47 Intake and Output: 06/07/17 06/07/17 06:59 18:59 Intake Total 2200 Balance 2200 - Medications Medications: Current Medications Sodium Chloride (Sodium Chloride 0.9%) 1,000 mls @ 100 mls/hr IV .Q10H NATHALIE Last Admin: 06/07/17 04:00 Dose: 100 mls/hr Ketorolac Tromethamine (Toradol) 30 mg IVP Q6 PRN PRN Reason: Pain, moderate (4-7) Last Admin: 06/05/17 23:58 Dose: 30 mg Ondansetron HCl (Zofran Inj) 4 mg IVP Q4 PRN PRN Reason: Nausea/Vomiting - Labs Labs: 06/06/17 08:29 06/06/17 08:29 - Constitutional Appears: No Acute Distress - Head Exam Head Exam: ATRAUMATIC, NORMOCEPHALIC - Eye Exam Eye Exam: Normal appearance - ENT Exam ENT Exam: Mucous Membranes Moist - Respiratory Exam Respiratory Exam: NORMAL BREATHING PATTERN - Cardiovascular Exam Cardiovascular Exam: REGULAR RHYTHM - GI/Abdominal Exam GI & Abdominal Exam: Soft. absent: Distended, Guarding, Rigid, Tenderness, Rebound - Extremities Exam Extremities Exam: Normal Capillary Refill - Neurological Exam Neurological Exam: Alert, Awake, Oriented x3 - Psychiatric Exam Psychiatric exam: Normal Affect, Normal Mood - Skin Skin Exam: Dry, Intact, Normal Color, Warm Assessment and Plan - Assessment and Plan (Free Text) Plan: 47 M with abd pain, possible SBO -No surgical intervention at this time -Patient clear for DC from surgical standpoint -Will DW Dr. Ifrah Charles PGY1
[2017-06-07 16:07] VITALS: BP 123/82; PULSE 72; RESP 18; TEMP 98.1; O2SAT 95
--- NOTE | 2017-06-07 16:46 | CP.PCM.PN ---
Subjective - Date & Time of Evaluation Date of Evaluation: 06/07/17 Time of Evaluation: 16:47 - Subjective Subjective: Alert, awake, tolerating diet, denies abdominal pain or vomiting. Objective - Vital Signs/Intake and Output Vital Signs (last 24 hours): Temp Pulse Resp BP Pulse Ox 98.1 F 72 18 123/82 95 06/07/17 15:55 06/07/17 15:55 06/07/17 15:55 06/07/17 15:55 06/07/17 15:55 Intake and Output: 06/07/17 06/07/17 06:59 18:59 Intake Total 2200 980 Balance 2200 980 - Medications Medications: Current Medications Sodium Chloride (Sodium Chloride 0.9%) 1,000 mls @ 100 mls/hr IV .Q10H NATHALIE Last Admin: 06/07/17 04:00 Dose: 100 mls/hr Ondansetron HCl (Zofran Inj) 4 mg IVP Q4 PRN PRN Reason: Nausea/Vomiting - Labs Labs: 06/06/17 08:29 06/06/17 08:29 Assessment and Plan - Assessment and Plan (Free Text) Assessment: Patient is seen and examined. Alert and orientedx3, denies abdominal pain, tolerating diet. Cleared by GI and surgery. D/W DR Nika Mobley, plan to discharge home today. Advised to advance diet slowly and follow up with DR Martell and DR Roland in the office.
== END 2017-06-07 16:45 | disposition home or self-care (01) | DRG 390 ==
LOC: C.ER 07:24 → C.6T 13:14
PROVIDERS: ADMIT Internal Medicine Nephrology; ATTEND Internal Medicine Nephrology
DX: K56.50 Intestinal adhesions [bands], unspecified as to partial versus complete obstruction (principal); K21.9 Gastro-esophageal reflux disease without esophagitis; Z85.038 Personal history of other malignant neoplasm of large intestine; Z86.19 Personal history of other infectious and parasitic diseases; Z86.010 Personal history of colon polyps

== ENCOUNTER 2017-07-17 07:15 | Day surgery (SDC) | payer OTHER ==
[2017-07-17] MEDS ORDERED: Propofol 10 mg/ml Inj (20 ML) ONE (08:50)
[2017-07-17] MEDS ORDERED: Lactated Ringer's 1,000 ML IV ONE (08:55)
--- NOTE | 2017-07-17 08:55 | CP.SDSHP ---
Same Day Surgery H & P - History Proposed Procedure: colonoscopy Pre-Op Diagnosis: h/o colon cancer (07/12). h//o colon polyps - Previous Medical/Surgical History Misc: Other (colon cancer, colon polyps, gerd, gastritis, small bowel obstruction 06/12) Previous Surgical History: left colon resection 07/12 - Allergies Allergies: Allergies No Known Allergies Allergy (Verified 07/17/17 07:29) - Physical Exam Vital Signs: Vital Signs 07/17/17 07/17/17 07:20 07:30 Temperature 97.3 F L Pulse Rate 75 75 Respiratory 19 Rate Blood Pressure 124/98 H O2 Sat by Pulse 98 Oximetry Mental Status: Alert & Oriented x3 Neuro: WNL Heart: WNL Lungs: WNL GI: WNL - {Optional Preform as Required} Abdomen: Other (large midline scar well healed) - Impression Impression: h/o colon cancer and polyps Pt. Evaluated Today:Candidate for Anesthesia & Procedure: Yes - Date & Time Date: 07/17/17 Time: 08:55 Short Stay Discharge - Short Stay Discharge Admitting Diagnosis/Reason for Visit: H/O COLON CANCER / BENIGN NEOPLASM Disposition: HOME/ ROUTINE
[2017-07-17 09:42] VITALS: RESP 12; TEMP 97.6; O2SAT 96
[2017-07-17 12:20] VITALS: BP 121/80; PULSE 75
== END 2017-07-17 10:20 | disposition home or self-care (01) ==
LOC: C.ENDO 07:15
PROVIDERS: ATTEND Internal Medicine Gastroenterology
DX: Z12.11 Encounter for screening for malignant neoplasm of colon (principal); Z85.038 Personal history of other malignant neoplasm of large intestine; D12.5 Benign neoplasm of sigmoid colon; K62.1 Rectal polyp; K64.8 Other hemorrhoids
CPT/HCPCS: 45388; 88305; J2704; J7120

== ENCOUNTER 2018-05-01 06:29 | Observation (INO) | payer OTHER ==
[2018-05-01 06:29] VITALS: BMI 30.7
[2018-05-01] MEDS ORDERED: Sodium Chloride 0.9% 1,000 ML IV ONE (06:52)
[2018-05-01] MEDS ORDERED: Sodium Chloride 0.9% 1,000 ML ONE (06:59)
[2018-05-01 07:00] LABS: VENOUS BLOOD GAS PCO2 40 mmHg (40-60); VENOUS BLOOD GAS PO2 49 mm/Hg (30-55); VENOUS BLOOD PH 7.43 (7.32-7.43)
[2018-05-01 07:01] LABS: BASO # 0.1 K/uL (0.0-0.2); BASO % 0.9 % (0.0-2.0); EOS # 0.1 K/uL (0.0-0.7); EOS % 0.9 % (0.0-4.0); HEMOGLOBIN 15.3 g/dL (12.0-18.0); LYMPH # 1.3 K/uL (1.0-4.3); LYMPH % 10.4 % (20.0-40.0); MEAN CELL VOLUME 85.1 fL (80.0-94.0); MEAN CORPUSCULAR HEMOGLOBIN 28.6 pg (27.0-31.0); MEAN CORPUSCULAR HGB CONC 33.5 g/dL (33.0-37.0); MEAN PLATELET VOLUME 8.3 fL (7.2-11.7); MONO # 0.7 K/uL (0.0-0.8); MONO % 5.6 % (0.0-10.0); NEUT # 10.1 K/uL (1.8-7.0); NEUT % 82.2 % (50.0-75.0); RBC 5.36 Mil/uL (4.40-5.90); RED CELL DISTRIBUTION WIDTH 12.7 % (11.5-14.5); WHITE BLOOD COUNT 12.3 K/uL (4.8-10.8)
[2018-05-01] MEDS ORDERED: Iohexol 240 (50 ml) PO STA (07:11)
[2018-05-01 07:15] LABS: ALB/GLOB RATIO 1.4 (1.0-2.1); ALBUMIN 4.7 g/dL (3.5-5.0); ALT/SGPT 34 U/L (21-72); AST/SGOT 34 U/L (17-59); BLOOD UREA NITROGEN 19 mg/dL (9-20); CALCIUM 9.4 mg/dl (8.6-10.4); GFR NON-AFRICAN AMERICAN > 60; LIPASE 73 U/L (23-300)
[2018-05-01] MEDS ORDERED: Iohexol 240 (50 ml) ONE (07:45)
--- NOTE | 2018-05-01 08:02 | C.PDOC ---
History Of Present Illness 48-year-old male, PMHx includes Colon CA s/p resection, prior SBO, presents to the emergency department with complaints of abdominal pain around the site of upper part of the incision. Patient complaining of one episode of non-bloody vomiting at 02:00. No fever, chills, cough, chest pain or any other associated symptoms. No other complaints at this time. Time Seen by Provider: 05/01/18 06:59 Chief Complaint (Nursing): Abdominal Pain History Per: Patient History/Exam Limitations: no limitations Current Symptoms Are (Timing): Still Present Past Medical History Reviewed: Historical Data, Nursing Documentation, Vital Signs Vital Signs: Last Vital Signs Temp 97.8 F 05/01/18 15:42 Pulse 66 05/01/18 15:42 Resp 18 05/01/18 15:42 BP 136/91 H 05/01/18 15:42 Pulse Ox 96 05/01/18 18:44 - Medical History PMH: Anemia, Anxiety, Asthma ( A CHILD), Colonic Polyps (CANCEROUS), Gastritis Surgical History: Endoscopy - [facility] Procedures RESECTION OF APPENDIX, OPEN APPROACH (07/12/16) RESECTION OF LEFT LARGE INTESTINE, OPEN APPROACH (07/12/16) Family History: States: No Known Family Hx - Social History Hx Tobacco Use: No Hx Alcohol Use: Yes Hx Substance Use: No - Immunization History Hx Tetanus Toxoid Vaccination: No Hx Influenza Vaccination: No Hx Pneumococcal Vaccination: No Review Of Systems Constitutional: Negative for: Fever Cardiovascular: Negative for: Chest Pain, Palpitations Respiratory: Negative for: Cough, Shortness of Breath Gastrointestinal: Positive for: Vomiting, Abdominal Pain. Negative for: Diarrhea Genitourinary: Negative for: Dysuria, Frequency Musculoskeletal: Negative for: Back Pain Skin: Negative for: Rash, Jaundice Neurological: Negative for: Weakness, Numbness Physical Exam - Physical Exam Appears: Non-toxic, No Acute Distress Skin: Warm, Dry, No Rash Head: Atraumatic, Normacephalic Eye(s): bilateral: Normal Inspection Nose: Normal Oral Mucosa: Moist Lips: Normal Appearing Neck: Normal ROM Chest: Symmetrical Cardiovascular: Rhythm Regular, No Murmur Respiratory: Normal Breath Sounds, No Accessory Muscle Use Gastrointestinal/Abdominal: Bowel Sounds, Soft, Tenderness (vertical midline scar, well healed, tender at proximal end, no erythema, swelling or warmth), No Guarding, No Rebound Extremity: Normal ROM, No Pedal Edema, No Calf Tenderness, No Deformity Pulses: Left Dorsalis Pedis: Normal, Right Dorsalis Pedis: Normal Neurological/Psych: Oriented x3, Normal Speech, Normal Cognition, Normal Motor, Normal Sensation ED Course And Treatment - Laboratory Results Result Diagrams: 05/01/18 06:59 05/01/18 06:59 O2 Sat by Pulse Oximetry: 96 (RA) Pulse Ox Interpretation: Normal Medical Decision Making Medical Decision Making: Plan: * Bloodwork * CT Abd/Pel * IVF, Zofran, Toradol * UA * Reassess and Disposition * 1157 ct neg for acute surgical pathology, show thickened bowel bravo. discussed with surgery, will admit to medicine. discussed with Dr May and Dr Branch (med resident) Disposition Discussed With .: Kiel May Jr. Doctor Will See Patient In The: Hospital - Disposition Disposition: HOSPITALIZED Disposition Time: 12:00 Condition: GOOD - Clinical Impression Clinical Impression: Abdominal pain, Colitis - Scribe Statement The provider has reviewed the documentation as recorded by the Scribe (Karol Felder) All medical record entries made by the Scribe were at my direction and personally dictated by me. I have reviewed the chart and agree that the record accurately reflects my personal performance of the history, physical exam, medical decision making, and the department course for this patient. I have also personally directed, reviewed, and agree with the discharge instructions and disposition.
[2018-05-01 09:12] LABS: URINE BILIRUBIN NEGATIVE (NEGATIVE); URINE BLOOD NEGATIVE (NEGATIVE); URINE CLARITY Clear (Clear); URINE COLOR Yellow (YELLOW); URINE GLUCOSE (UA) NORMAL (Normal); URINE LEUKOCYTE ESTERASE NEG Leu/uL (Negative); URINE PROTEIN NEGATIVE (NEGATIVE); URINE UROBILINOGEN NORMAL mg/dL (0.2-1.0)
[2018-05-01] MEDS ORDERED: Iodixanol 320 mg/ml 150 ml Bottle IV ONE (09:49)
--- NOTE | 2018-05-01 10:18 | CP.PCM.HP ---
History of Present Illness - History of Present Illness History of Present Illness: PGY-1 H&P note for Dr Baugh service Patient is a 48 yo male with pmhx Past Patient History - Infectious Disease Hx of Infectious Diseases: None - Past Medical History & Family History Past Medical History?: Yes - Past Social History Smoking Status: Never Smoked - CARDIAC Hx Cardiac Disorders: No Hx Heart Attack: No - PULMONARY Hx Asthma: Yes ( A CHILD) - NEUROLOGICAL Hx Neurological Disorder: No HX Cerebrovascular Accident: No Hx Transient Ischemic Attacks (TIA): No - HEENT Hx HEENT Problems: No - RENAL Hx Chronic Kidney Disease: No - ENDOCRINE/METABOLIC Hx Endocrine Disorders: No - HEMATOLOGICAL/ONCOLOGICAL Hx Anemia: Yes - INTEGUMENTARY Hx Dermatological Problems: No - MUSCULOSKELETAL/RHEUMATOLOGICAL Hx Musculoskeletal Disorders: No Hx Falls: No Hx Fractures: No - GASTROINTESTINAL Hx Gastritis: Yes - GENITOURINARY/GYNECOLOGICAL Hx Genitourinary Disorders: No - PSYCHIATRIC Hx Anxiety: Yes Hx Substance Use: No - SURGICAL HISTORY Hx Surgeries: Yes Other/Comment: COLECTOMY 06/2016 - ANESTHESIA Hx Anesthesia: Yes Hx Anesthesia Reactions: No Hx Malignant Hyperthermia: No Meds Allergies/Adverse Reactions: Allergies Allergy/AdvReac Type Severity Reaction Status Date / Time No Known Allergies Allergy Verified 05/01/18 06:42 Results - Vital Signs Recent Vital Signs: Last Vital Signs Temp 98.1 F 05/01/18 06:37 Pulse 85 05/01/18 07:37 Resp 20 05/01/18 07:37 BP 151/90 H 05/01/18 07:37 Pulse Ox 96 05/01/18 08:10 - Labs Result Diagrams: 05/01/18 06:59 05/01/18 06:59 Labs: Laboratory Results - last 24 hr 05/01/18 05/01/18 05/01/18 06:56 06:59 06:59 WBC 12.3 H D RBC 5.36 Hgb 15.3 Hct 45.6 MCV 85.1 MCH 28.6 MCHC 33.5 RDW 12.7 Plt Count 198 MPV 8.3 Neut % (Auto) 82.2 H Lymph % (Auto) 10.4 L Armstrong % (Auto) 5.6 Eos % (Auto) 0.9 Baso % (Auto) 0.9 Neut # (Auto) 10.1 H Lymph # (Auto) 1.3 Armstrong # (Auto) 0.7 Eos # (Auto) 0.1 Baso # (Auto) 0.1 pO2 49 VBG pH 7.43 VBG pCO2 40 VBG HCO3 26.2 VBG Total CO2 27.7 VBG O2 Sat (Calc) 86.4 H VBG Base Excess 2.0 VBG Potassium 3.5 L Sodium 138.0 142 Chloride 105.0 101 Glucose 118 H Lactate 1.5 Potassium 4.1 Carbon Dioxide 28 Anion Gap 18 BUN 19 Creatinine 0.9 Est GFR ( Amer) > 60 Est GFR (Non-Af Amer) > 60 Random Glucose 119 H Calcium 9.4 Total Bilirubin 2.4 H AST 34 ALT 34 Alkaline Phosphatase 63 Total Protein 8.0 Albumin 4.7 Globulin 3.3 Albumin/Globulin Ratio 1.4 Lipase 73 Venous Blood Potassium 3.5 L Urine Color Urine Clarity Urine pH Ur Specific Burt Urine Protein Urine Glucose (UA) Urine Ketones Urine Blood Urine Nitrate Urine Bilirubin Urine Urobilinogen Ur Leukocyte Esterase Urine RBC (Auto) 05/01/18 08:59 WBC RBC Hgb Hct MCV MCH MCHC RDW Plt Count MPV Neut % (Auto) Lymph % (Auto) Armstrong % (Auto) Eos % (Auto) Baso % (Auto) Neut # (Auto) Lymph # (Auto) Armstrong # (Auto) Eos # (Auto) Baso # (Auto) pO2 VBG pH VBG pCO2 VBG HCO3 VBG Total CO2 VBG O2 Sat (Calc) VBG Base Excess VBG Potassium Sodium Chloride Glucose Lactate Potassium Carbon Dioxide Anion Gap BUN Creatinine Est GFR ( Amer) Est GFR (Non-Af Amer) Random Glucose Calcium Total Bilirubin AST ALT Alkaline Phosphatase Total Protein Albumin Globulin Albumin/Globulin Ratio Lipase Venous Blood Potassium Urine Color Yellow Urine Clarity Clear Urine pH 8.0 Ur Specific Burt 1.020 Urine Protein Negative Urine Glucose (UA) Normal Urine Ketones Negative Urine Blood Negative Urine Nitrate Negative Urine Bilirubin Negative Urine Urobilinogen Normal Ur Leukocyte Esterase Neg Urine RBC (Auto) 1
--- NOTE | 2018-05-01 10:59 | CT ---
PROCEDURE: CT Abdomen and Pelvis with oral and IV contrast. HISTORY: ab pain, vomiting COMPARISON: CT abdomen and pelvis with contrast performed 06/05/17 TECHNIQUE: Contiguous axial images of the abdomen and pelvis. Oral and IV contrast was administered. Coronal and Sagittal reformats generated and reviewed. Contrast dose: 100 mL Visipaque IV Radiation dose: Total exam DLP = 895.38 mGy-cm. This CT exam was performed using one or more of the following dose reduction techniques: Automated exposure control, adjustment of the mA and/or kV according to patient size, and/or use of iterative reconstruction technique. FINDINGS: LOWER THORAX: No visible consolidation, pleural effusion, or pneumothorax. LIVER: Too small to characterize hepatic hypodensities; statistically likely cysts or hemangiomas. GALLBLADDER AND BILE DUCTS: Unremarkable. PANCREAS: Unremarkable. SPLEEN: Unremarkable. ADRENALS: Unremarkable. KIDNEYS AND URETERS: The kidneys enhance symmetrically. No hydronephrosis or obstructing renal calculus. 10 mm hypodensity within the right lower pole measures approximately 18 HU, slightly higher than expected for simple cyst. Additional probable right upper pole cyst. BLADDER: Mildly thick-walled urinary bladder may be exaggerated by under distension. REPRODUCTIVE: The prostate gland measures approximately 3.5 x 4.7 cm. APPENDIX: No secondary signs of acute appendicitis. BOWEL: The stomach is nondistended. Oral contrast is seen within the colon. No dilated small bowel loops to suggest obstruction. Markedly thick-walled loops of small bowel within the mid abdomen worrisome for infectious/ inflammatory etiologies. PERITONEUM: No significant free fluid. No definite free air. LYMPH NODES: Nonspecific scattered mesenteric lymph nodes. No bulky lymphadenopathy identified. VASCULATURE: No aortic aneurysm. BONES: Degenerative changes of the spine. OTHER FINDINGS: None. IMPRESSION: Markedly thick-walled loops of small bowel within the mid abdomen worrisome for infectious or inflammatory etiologies. Correlate clinically for enteritis and follow-up as indicated. Oral contrast is seen within the colon. Additional findings as above.
[2018-05-01] MEDS ORDERED: Piperacillin/Tazobact 3.375 gm 100 ML IVPB STA (11:20)
--- NOTE | 2018-05-01 11:49 | CP.PCM.CON ---
History of Present Illness - History of Present Illness History of Present Illness: PGY-[address] Rg service CC: Abdominal pain HPI: Patient is a 48 year old male with pmhx of colon CA s/p subtotal left hemicolectomy and SBO that came to ED for abdominal pain around the healed incision site that started last night. Patient describes the pain as a sharp, constant pain, rated 8/10, diffusely between the left and right lower quadrant. Patient took tums but did not help with his pain. Patient states the pain is worst with movement and bending. Patient admits to one episode of clear watery emesis, but reports no blood in emesis. Patient says his pain has gotten better with toradol given at ER. Patient denies fever, chills, headaches, dizziness, chest pain, shortness of breath, nausea, vomiting, diarrhea or constipation. PMhx: Colon CA (2016), SBO (2017) Shx: left hemicolectomy with primary anastomosis. Intraoperative sigmoidoscopy and appendectomy (2016) All: NKDA Meds: Xanax (PRN) Famhx: lung CA (father) Sochx: nonsmoker, drink socially, denies illicit drug use. 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 Review of Systems - Review of Systems All systems: reviewed and no additional remarkable complaints except Review of Systems: as indicated in HPI Past Patient History - Infectious Disease Hx of Infectious Diseases: None - Past Medical History & Family History Past Medical History?: Yes - Past Social History Smoking Status: Never Smoked - CARDIAC Hx Cardiac Disorders: No Hx Heart Attack: No - PULMONARY Hx Asthma: Yes ( A CHILD) - NEUROLOGICAL Hx Neurological Disorder: No HX Cerebrovascular Accident: No Hx Transient Ischemic Attacks (TIA): No - HEENT Hx HEENT Problems: No - RENAL Hx Chronic Kidney Disease: No - ENDOCRINE/METABOLIC Hx Endocrine Disorders: No - HEMATOLOGICAL/ONCOLOGICAL Hx Anemia: Yes - INTEGUMENTARY Hx Dermatological Problems: No - MUSCULOSKELETAL/RHEUMATOLOGICAL Hx Musculoskeletal Disorders: No Hx Falls: No Hx Fractures: No - GASTROINTESTINAL Hx Gastritis: Yes - GENITOURINARY/GYNECOLOGICAL Hx Genitourinary Disorders: No - PSYCHIATRIC Hx Anxiety: Yes Hx Substance Use: No - SURGICAL HISTORY Hx Surgeries: Yes Other/Comment: COLECTOMY 06/2016 - ANESTHESIA Hx Anesthesia: Yes Hx Anesthesia Reactions: No Hx Malignant Hyperthermia: No Meds Allergies/Adverse Reactions: Allergies Allergy/AdvReac Type Severity Reaction Status Date / Time No Known Allergies Allergy Verified 05/01/18 06:42 - Medications Medications: Current Medications Piperacillin Sod/Tazobactam Sod (Zosyn 3.375 In Ns 100ml) 100 mls @ 200 mls/hr IVPB STAT STA PRN Reason: Protocol Stop: 05/01/18 11:49 Physical Exam - Constitutional Appears: Non-toxic, No Acute Distress - Head Exam Head Exam: ATRAUMATIC, NORMAL INSPECTION, NORMOCEPHALIC - Eye Exam Eye Exam: EOMI, Normal appearance - ENT Exam ENT Exam: Mucous Membranes Moist - Neck Exam Neck exam: Positive for: Normal Inspection - Respiratory Exam Respiratory Exam: Clear to Auscultation Bilateral, NORMAL BREATHING PATTERN. absent: Rales, Rhonchi, Wheezes - Cardiovascular Exam Cardiovascular Exam: REGULAR RHYTHM, +S1, +S2 - GI/Abdominal Exam GI & Abdominal Exam: Normal Bowel Sounds, Soft, Tenderness. absent: Guarding Additional comments: Right upper and left upper quadrant mild tenderness on light palpation right lower quadrant tenderness on deep palpation - Extremities Exam Extremities exam: Positive for: full ROM, normal inspection. Negative for: tenderness - Back Exam Back exam: NORMAL INSPECTION - Neurological Exam Neurological exam: Alert, Oriented x3 - Psychiatric Exam Psychiatric exam: Normal Affect, Normal Mood - Skin Skin Exam: Intact, Normal Color, Warm Results - Vital Signs Recent Vital Signs: Last Vital Signs Temp 98.4 F 05/01/18 10:25 Pulse 72 05/01/18 10:25 Resp 18 05/01/18 10:25 BP 128/84 05/01/18 10:25 Pulse Ox 99 05/01/18 10:25 - Labs Result Diagrams: 05/01/18 06:59 05/01/18 06:59 Labs: Laboratory Results - last 24 hr 05/01/18 05/01/18 05/01/18 06:56 06:59 06:59 WBC 12.3 H D RBC 5.36 Hgb 15.3 Hct 45.6 MCV 85.1 MCH 28.6 MCHC 33.5 RDW 12.7 Plt Count 198 MPV 8.3 Neut % (Auto) 82.2 H Lymph % (Auto) 10.4 L Cobb % (Auto) 5.6 Eos % (Auto) 0.9 Baso % (Auto) 0.9 Neut # (Auto) 10.1 H Lymph # (Auto) 1.3 Cobb # (Auto) 0.7 Eos # (Auto) 0.1 Baso # (Auto) 0.1 pO2 49 VBG pH 7.43 VBG pCO2 40 VBG HCO3 26.2 VBG Total CO2 27.7 VBG O2 Sat (Calc) 86.4 H VBG Base Excess 2.0 VBG Potassium 3.5 L Sodium 138.0 142 Chloride 105.0 101 Glucose 118 H Lactate 1.5 Potassium 4.1 Carbon Dioxide 28 Anion Gap 18 BUN 19 Creatinine 0.9 Est GFR ( Amer) > 60 Est GFR (Non-Af Amer) > 60 Random Glucose 119 H Calcium 9.4 Total Bilirubin 2.4 H AST 34 ALT 34 Alkaline Phosphatase 63 Total Protein 8.0 Albumin 4.7 Globulin 3.3 Albumin/Globulin Ratio 1.4 Lipase 73 Venous Blood Potassium 3.5 L Urine Color Urine Clarity Urine pH Ur Specific Norris Urine Protein Urine Glucose (UA) Urine Ketones Urine Blood Urine Nitrate Urine Bilirubin Urine Urobilinogen Ur Leukocyte Esterase Urine RBC (Auto) 05/01/18 08:59 WBC RBC Hgb Hct MCV MCH MCHC RDW Plt Count MPV Neut % (Auto) Lymph % (Auto) Cobb % (Auto) Eos % (Auto) Baso % (Auto) Neut # (Auto) Lymph # (Auto) Cobb # (Auto) Eos # (Auto) Baso # (Auto) pO2 VBG pH VBG pCO2 VBG HCO3 VBG Total CO2 VBG O2 Sat (Calc) VBG Base Excess VBG Potassium Sodium Chloride Glucose Lactate Potassium Carbon Dioxide Anion Gap BUN Creatinine Est GFR ( Amer) Est GFR (Non-Af Amer) Random Glucose Calcium Total Bilirubin AST ALT Alkaline Phosphatase Total Protein Albumin Globulin Albumin/Globulin Ratio Lipase Venous Blood Potassium Urine Color Yellow Urine Clarity Clear Urine pH 8.0 Ur Specific Norris 1.020 Urine Protein Negative Urine Glucose (UA) Normal Urine Ketones Negative Urine Blood Negative Urine Nitrate Negative Urine Bilirubin Negative Urine Urobilinogen Normal Ur Leukocyte Esterase Neg Urine RBC (Auto) 1 Assessment & Plan - Assessment and Plan (Free Text) Assessment: 48 yo M with pmhx of colon cancer s/p left hemicolectomy (2016) and SBO presenting with abdominal pain 2/2 enteritis Plan: -CT abdomen/pelvis : thick walled loops of small bowel within the mid abdomen worrisome for infectious or inflammatory etiology. Correlate clinically for enteritis. - tentative plan for OR tomorrow - continue NPO - Cont abx as per ID and Medicine - Pain management prn - Follow Meds rec - Will consent if patient going to OR tomorrow Plan discussed with Dr Rg - Date & Time Date: 05/01/18 Time: 09:30
[2018-05-01] MEDS ORDERED: Piperacillin/Tazobact 3.375 gm 100 ML IVPB ONE (11:54)
--- NOTE | 2018-05-01 13:57 | CP.PCM.HP ---
History of Present Illness - History of Present Illness History of Present Illness: Medicine Note for Dr. May's Service CC: abdominal pain HPI: This is a 48 year old female with PMHx of Colon CA found on colonoscopy s/ p resection with Dr. Rg in 2015 who presented to the ED with sharp, crampy abdominal pain x 1 day. Patient reports the night prior to admission, he started to have sharp, crampy, intermittent abdominal pain. He reported not eating anything unusual. He did not take anything for the pain. He noted the pain became worse with food. Patient presents today due to continued abdominal pain that has not resolved on its own. He is able to pass gas and had a bowel movement prior to arrival to the ED. Denied fever, chills, headache, shortness of breath, chest pain, n/v/d/c, or urinary symptoms. PMHx: Colon CA found on colonoscopy s/p resection with Dr. Rg in 2015 PSHx: Hemicolectomy 2015 Meds: Denied All: NKDA SHx: Denied any tobacco, alcohol, or illicit drug use FHx: Unremarkable Present on Admission - Present on Admission Any Indicators Present on Admission: No Past Patient History - Infectious Disease Hx of Infectious Diseases: None - Past Medical History & Family History Past Medical History?: Yes - Past Social History Smoking Status: Never Smoked - CARDIAC Hx Cardiac Disorders: No Hx Heart Attack: No - PULMONARY Hx Asthma: Yes ( A CHILD) - NEUROLOGICAL Hx Neurological Disorder: No HX Cerebrovascular Accident: No Hx Transient Ischemic Attacks (TIA): No - HEENT Hx HEENT Problems: No - RENAL Hx Chronic Kidney Disease: No - ENDOCRINE/METABOLIC Hx Endocrine Disorders: No - HEMATOLOGICAL/ONCOLOGICAL Hx Anemia: Yes - INTEGUMENTARY Hx Dermatological Problems: No - MUSCULOSKELETAL/RHEUMATOLOGICAL Hx Musculoskeletal Disorders: No Hx Falls: No Hx Fractures: No - GASTROINTESTINAL Hx Gastritis: Yes - GENITOURINARY/GYNECOLOGICAL Hx Genitourinary Disorders: No - PSYCHIATRIC Hx Anxiety: Yes Hx Substance Use: No - SURGICAL HISTORY Hx Surgeries: Yes Other/Comment: COLECTOMY 06/2016 - ANESTHESIA Hx Anesthesia: Yes Hx Anesthesia Reactions: No Hx Malignant Hyperthermia: No Meds Allergies/Adverse Reactions: Allergies Allergy/AdvReac Type Severity Reaction Status Date / Time No Known Allergies Allergy Verified 05/01/18 06:42 Physical Exam - Constitutional Appears: No Acute Distress - Head Exam Head Exam: NORMAL INSPECTION, NORMOCEPHALIC - Eye Exam Eye Exam: EOMI, Normal appearance, PERRL Pupil Exam: NORMAL ACCOMODATION - ENT Exam ENT Exam: Mucous Membranes Moist, Normal Exam - Neck Exam Neck exam: Positive for: Normal Inspection. Negative for: Lymphadenopathy, Thyromegaly - Respiratory Exam Respiratory Exam: Clear to Auscultation Bilateral, NORMAL BREATHING PATTERN. absent: Decreased Breath Sounds, Rales, Rhonchi, Wheezes - Cardiovascular Exam Cardiovascular Exam: REGULAR RHYTHM, +S1, +S2. absent: Gallop, Irregular Rhythm - GI/Abdominal Exam GI & Abdominal Exam: Normal Bowel Sounds, Soft, Tenderness. absent: Distended, Hernia, Hyperactive Bowel Sounds, Hypoactive Bowel Sounds, Organomegaly Additional comments: Surgical scar noted from hemicolectomy - Extremities Exam Extremities exam: Positive for: normal inspection, pedal pulses present. Negative for: pedal edema, tenderness - Back Exam Back exam: NORMAL INSPECTION - Neurological Exam Neurological exam: Alert, CN II-XII Intact, Oriented x3 - Psychiatric Exam Psychiatric exam: Normal Affect, Normal Mood - Skin Skin Exam: Dry, Intact, Normal Color, Warm Results - Vital Signs Recent Vital Signs: Last Vital Signs Temp 98.4 F 05/01/18 10:25 Pulse 72 05/01/18 10:25 Resp 18 05/01/18 10:25 BP 128/84 05/01/18 10:25 Pulse Ox 96 05/01/18 12:01 - Labs Result Diagrams: 05/01/18 06:59 05/01/18 06:59 Labs: Laboratory Results - last 24 hr 05/01/18 05/01/18 05/01/18 06:56 06:59 06:59 WBC 12.3 H D RBC 5.36 Hgb 15.3 Hct 45.6 MCV 85.1 MCH 28.6 MCHC 33.5 RDW 12.7 Plt Count 198 MPV 8.3 Neut % (Auto) 82.2 H Lymph % (Auto) 10.4 L Foster % (Auto) 5.6 Eos % (Auto) 0.9 Baso % (Auto) 0.9 Neut # (Auto) 10.1 H Lymph # (Auto) 1.3 Foster # (Auto) 0.7 Eos # (Auto) 0.1 Baso # (Auto) 0.1 pO2 49 VBG pH 7.43 VBG pCO2 40 VBG HCO3 26.2 VBG Total CO2 27.7 VBG O2 Sat (Calc) 86.4 H VBG Base Excess 2.0 VBG Potassium 3.5 L Sodium 138.0 142 Chloride 105.0 101 Glucose 118 H Lactate 1.5 Potassium 4.1 Carbon Dioxide 28 Anion Gap 18 BUN 19 Creatinine 0.9 Est GFR ( Amer) > 60 Est GFR (Non-Af Amer) > 60 Random Glucose 119 H Calcium 9.4 Total Bilirubin 2.4 H AST 34 ALT 34 Alkaline Phosphatase 63 Total Protein 8.0 Albumin 4.7 Globulin 3.3 Albumin/Globulin Ratio 1.4 Lipase 73 Venous Blood Potassium 3.5 L Urine Color Urine Clarity Urine pH Ur Specific Anderson Urine Protein Urine Glucose (UA) Urine Ketones Urine Blood Urine Nitrate Urine Bilirubin Urine Urobilinogen Ur Leukocyte Esterase Urine RBC (Auto) 05/01/18 08:59 WBC RBC Hgb Hct MCV MCH MCHC RDW Plt Count MPV Neut % (Auto) Lymph % (Auto) Foster % (Auto) Eos % (Auto) Baso % (Auto) Neut # (Auto) Lymph # (Auto) Foster # (Auto) Eos # (Auto) Baso # (Auto) pO2 VBG pH VBG pCO2 VBG HCO3 VBG Total CO2 VBG O2 Sat (Calc) VBG Base Excess VBG Potassium Sodium Chloride Glucose Lactate Potassium Carbon Dioxide Anion Gap BUN Creatinine Est GFR ( Amer) Est GFR (Non-Af Amer) Random Glucose Calcium Total Bilirubin AST ALT Alkaline Phosphatase Total Protein Albumin Globulin Albumin/Globulin Ratio Lipase Venous Blood Potassium Urine Color Yellow Urine Clarity Clear Urine pH 8.0 Ur Specific Anderson 1.020 Urine Protein Negative Urine Glucose (UA) Normal Urine Ketones Negative Urine Blood Negative Urine Nitrate Negative Urine Bilirubin Negative Urine Urobilinogen Normal Ur Leukocyte Esterase Neg Urine RBC (Auto) 1 Assessment & Plan - Assessment and Plan (Free Text) Plan: Colitis - Afebrile, leukocytosis with left shift - TTP on abdominal exam Imaging: - CT abdomen/ pelvis: Markedly thick-walled loops of small bowel within the mid abdomen worrisome for infectious or inflammatory etiologies. Correlate clinically for enteritis and follow-up as indicated. Medications/ Management: - NPO, NS/D5 @ 100cc/hr x 2 bags, Flagyl, Cipro, Florastor, Zofran PRN Hx Colon CA s/p Hemicolectomy 2016 Prophylactic Measures - GI PPX: Protonix - DVT PPX: SCDs, Lovenox - Will advance diet as tolerated Disposition: Pending clinical improvement, anticipate discharge home tomorrow with oral antibiotics (total 10 day course) and probiotics DW Dr. May, Bonny Cadena DO, PGY-2
[2018-05-01] MEDS: Dextrose 5%/0.9% NS 1,000 ML IV SCH (14:45)
[2018-05-01] MEDS ORDERED: MethylPREDNISolone 40 mg Vial IVP ONE (15:00)
[2018-05-01] MEDS ORDERED: Ciprofloxacin 400mg/200ml D5W 400 MG/200 ML BAG IVPB SCH (15:00)
[2018-05-01] MEDS: Ciprofloxacin 400mg/200ml D5W 400 MG/200 ML BAG IVPB SCH (18:13)
[2018-05-01] MEDS: metroNIDAZOLE IV 500 mg/100 ml 500 MG/100 ML BAG IVPB SCH (20:50)
[2018-05-01] MEDS: MethylPREDNISolone 40 mg Vial IVP SCH (21:47)
[2018-05-01] MEDS: Saccharomyces Boulardi 250 mg Cap PO SCH (21:48)
[2018-05-02] MEDS: Dextrose 5%/0.9% NS 1,000 ML IV SCH ×2 (00:33→07:56)
[2018-05-02 02:09] VITALS: TEMP 97.9
[2018-05-02] MEDS: metroNIDAZOLE IV 500 mg/100 ml 500 MG/100 ML BAG IVPB SCH ×2 (03:00→12:30)
[2018-05-02] MEDS: MethylPREDNISolone 40 mg Vial IVP SCH ×2 (05:14→13:30)
[2018-05-02] MEDS: Ciprofloxacin 400mg/200ml D5W 400 MG/200 ML BAG IVPB SCH ×2 (05:14→17:43)
[2018-05-02 07:26] LABS: BASO % 0.1 % (0.0-2.0); HEMOGLOBIN 14.5 g/dL (12.0-18.0); LYMPH # 1.2 K/uL (1.0-4.3); LYMPH % 9.8 % (20.0-40.0); MEAN CELL VOLUME 86.3 fL (80.0-94.0); MEAN CORPUSCULAR HEMOGLOBIN 28.7 pg (27.0-31.0); MEAN CORPUSCULAR HGB CONC 33.2 g/dL (33.0-37.0); MEAN PLATELET VOLUME 8.7 fL (7.2-11.7); MONO # 0.1 K/uL (0.0-0.8); MONO % 1.2 % (0.0-10.0); NEUT # 10.6 K/uL (1.8-7.0); NEUT % 88.9 % (50.0-75.0); NRBC % 0.1 % (0.0-2.0); PLATELET COUNT 208 K/uL (130-400); RBC 5.05 Mil/uL (4.40-5.90); RED CELL DISTRIBUTION WIDTH 12.8 % (11.5-14.5); WHITE BLOOD COUNT 11.9 K/uL (4.8-10.8)
[2018-05-02 07:54] LABS: ALB/GLOB RATIO 1.3 (1.0-2.1); ALT/SGPT 32 U/L (21-72); AST/SGOT 22 U/L (17-59); BLOOD UREA NITROGEN 11 mg/dL (9-20); CALCIUM 8.7 mg/dl (8.6-10.4); GFR NON-AFRICAN AMERICAN > 60
[2018-05-02 08:45] LABS: BANDS 2 % (0-2); LYMPHOCYTE 11 % (20-40); MONOCYTE 1 % (0-10); NEUTROPHIL 86 % (50-75); PLATELET ESTIMATE NORMAL (NORMAL); TOTAL CELLS COUNTED 100
[2018-05-02] MEDS: Saccharomyces Boulardi 250 mg Cap PO SCH (09:32)
--- NOTE | 2018-05-02 09:37 | CP.PCM.PN ---
Objective - Vital Signs/Intake and Output Vital Signs (last 24 hours): Temp Pulse Resp BP Pulse Ox 97.9 F 74 18 109/71 95 05/02/18 00:00 05/02/18 00:00 05/02/18 00:00 05/02/18 00:00 05/02/18 00:00 - Medications Medications: Current Medications Enoxaparin Sodium (Lovenox) 30 mg SC DAILY [facility] Dextrose/Sodium Chloride (Dextrose 5%/0.9% Ns 1000 Ml) 1,000 mls @ 100 mls/hr IV .Q10H [facility] Stop: 05/02/18 09:59 Last Admin: 05/02/18 07:56 Dose: 100 mls/hr Metronidazole (Flagyl) 500 mg in 100 mls @ 100 mls/hr IVPB Q8H NATHALIE PRN Reason: Protocol Last Admin: 05/02/18 03:00 Dose: 100 mls/hr Ciprofloxacin (Cipro 400mg/200ml Dsw) 400 mg in 200 mls @ 133 mls/hr IVPB Q12H NATHALIE PRN Reason: Protocol Last Admin: 05/02/18 05:14 Dose: 133 mls/hr Methylprednisolone (Solu-Medrol) 40 mg IVP Q8 [facility] Stop: 05/02/18 14:01 Last Admin: 05/02/18 05:14 Dose: 40 mg Ondansetron HCl (Zofran Inj) 4 mg IVP Q6 PRN PRN Reason: Nausea/Vomiting Pantoprazole Sodium (Protonix Inj) 40 mg IVP DAILY [facility] Last Admin: 05/02/18 09:32 Dose: 40 mg Saccharomyces Boulardii (Florastor) 250 mg PO Q12 [facility] Last Admin: 05/02/18 09:32 Dose: 250 mg - Labs Labs: 05/02/18 06:27 05/02/18 06:27
[2018-05-02] MEDS ORDERED: Enoxaparin 30 mg Syringe SC SCH (10:00)
--- NOTE | 2018-05-02 15:05 | CP.PCM.PN ---
Subjective - Date & Time of Evaluation Date of Evaluation: 05/02/18 Time of Evaluation: 15:02 - Subjective Subjective: Surger y Pt seen and examined. No acute events. Possible surgery options discussed. Pt prefers to get the hernia repaired electively. Deniew fever, nausea, diarrhewa. Pain controlled. Objective - Vital Signs/Intake and Output Vital Signs (last 24 hours): Temp Pulse Resp BP Pulse Ox 97.9 F 80 20 143/80 96 05/02/18 07:58 05/02/18 07:58 05/02/18 07:58 05/02/18 07:58 05/02/18 07:58 - Medications Medications: Current Medications Enoxaparin Sodium (Lovenox) 30 mg SC DAILY [facility] Metronidazole (Flagyl) 500 mg in 100 mls @ 100 mls/hr IVPB Q8H [facility] PRN Reason: Protocol Last Admin: 05/02/18 12:30 Dose: 100 mls/hr Ciprofloxacin (Cipro 400mg/200ml Dsw) 400 mg in 200 mls @ 133 mls/hr IVPB Q12H [facility] PRN Reason: Protocol Last Admin: 05/02/18 05:14 Dose: 133 mls/hr Ondansetron HCl (Zofran Inj) 4 mg IVP Q6 PRN PRN Reason: Nausea/Vomiting Pantoprazole Sodium (Protonix Inj) 40 mg IVP DAILY [facility] Last Admin: 05/02/18 09:32 Dose: 40 mg Saccharomyces Boulardii (Florastor) 250 mg PO Q12 [facility] Last Admin: 05/02/18 09:32 Dose: 250 mg - Labs Labs: 05/02/18 06:27 05/02/18 06:27 - Constitutional Appears: No Acute Distress - Head Exam Head Exam: ATRAUMATIC, NORMAL INSPECTION, NORMOCEPHALIC - Eye Exam Eye Exam: EOMI, Normal appearance, PERRL Pupil Exam: NORMAL ACCOMODATION, PERRL - ENT Exam ENT Exam: Mucous Membranes Moist, Normal Exam - Neck Exam Neck Exam: Full ROM - Respiratory Exam Respiratory Exam: NORMAL BREATHING PATTERN - Cardiovascular Exam Cardiovascular Exam: REGULAR RHYTHM - GI/Abdominal Exam GI & Abdominal Exam: Soft, Normal Bowel Sounds. absent: Distended, Tenderness Additional comments: 3x4cm diastasis, hernia - Exam Exam: NORMAL INSPECTION - Extremities Exam Extremities Exam: Full ROM, Normal Capillary Refill, Normal Inspection. absent : Joint Swelling, Pedal Edema - Back Exam Back Exam: NORMAL INSPECTION - Neurological Exam Neurological Exam: Alert, Awake, CN II-XII Intact, Normal Gait, Oriented x3 - Psychiatric Exam Psychiatric exam: Normal Affect, Normal Mood - Skin Skin Exam: Dry, Intact, Normal Color, Warm Assessment and Plan - Assessment and Plan (Free Text) Assessment: 48 yo M with pmhx of colon cancer s/p left hemicolectomy (2016) and SBO presenting with abdominal pain 2/2 enteritis Mild leukocytosis Plan: -CT abdomen/pelvis : thick walled loops of small bowel within the mid abdomen worrisome for infectious or inflammatory etiology. Correlate clinically for enteritis. -Advance diet as tolerated - Pain management prn - Follow Meds rec - Elective outpatient hernia repair Seen and examined with Dr. Rg. Case DEEPTHI Rg
[2018-05-02 16:11] VITALS: BP 118/77; PULSE 20; RESP 18; O2SAT 95
--- NOTE | 2018-05-02 22:50 | CP.PCM.DIS ---
Provider - Provider Date of Admission: 05/01/18 12:01 Attending physician: Kiel May Jr, MD Consults: Dr. Rg Time Spent in preparation of Discharge (in minutes): 45 Hospital Course - Lab Results Lab Results: Most Recent Lab Values WBC 11.9 K/uL (4.8-10.8) H 05/02/18 06:27 RBC 5.05 Mil/uL (4.40-5.90) 05/02/18 06:27 Hgb 14.5 g/dL (12.0-18.0) 05/02/18 06:27 Hct 43.6 % (35.0-51.0) 05/02/18 06:27 MCV 86.3 fL (80.0-94.0) 05/02/18 06:27 MCH 28.7 pg (27.0-31.0) 05/02/18 06: MCHC 33.2 g/dL (33.0-37.0) 05/02/18 06:27 RDW 12.8 % (11.5-14.5) 05/02/18 06:27 Plt Count 208 K/uL (130-400) 05/02/18 06:27 MPV 8.7 fL (7.2-11.7) 05/02/18 06:27 Neut % (Auto) 88.9 % (50.0-75.0) H 05/02/18 06:27 Lymph % (Auto) 9.8 % (20.0-40.0) L 05/02/18 06:27 [place] % (Auto) 1.2 % (0.0-10.0) 05/02/18 06:27 Eos % (Auto) 0.0 % (0.0-4.0) 05/02/18 06:27 Baso % (Auto) 0.1 % (0.0-2.0) 05/02/18 06:27 Neut # (Auto) 10.6 K/uL (1.8-7.0) H 05/02/18 06:27 Lymph # (Auto) 1.2 K/uL (1.0-4.3) 05/02/18 06:27 [place] # (Auto) 0.1 K/uL (0.0-0.8) 05/02/18 06:27 Eos # (Auto) 0.0 K/uL (0.0-0.7) 05/02/18 06:27 Baso # (Auto) 0.0 K/uL (0.0-0.2) 05/02/18 06:27 Neutrophils % (Manual) 86 % (50-75) H 05/02/18 06:27 Band Neutrophils % 2 % (0-2) 05/02/18 06:27 Lymphocytes % (Manual) 11 % (20-40) L 05/02/18 06:27 Monocytes % (Manual) 1 % (0-10) 05/02/18 06:27 Platelet Estimate Normal (NORMAL) 05/02/18 06:27 pO2 49 mm/Hg (30-55) 05/01/18 06:56 VBG pH 7.43 (7.32-7.43) 05/01/18 06:56 VBG pCO2 40 mmHg (40-60) 05/01/18 06:56 VBG HCO3 26.2 mmol/L 05/01/18 06:56 VBG Total CO2 27.7 mmol/L (22-28) 05/01/18 06:56 VBG O2 Sat (Calc) 86.4 % (40-65) H 05/01/18 06:56 VBG Base Excess 2.0 mmol/L (0.0-2.0) 05/01/18 06:56 VBG Potassium 3.5 mmol/L (3.6-5.2) L 05/01/18 06:56 Sodium 138.0 mmol/l (132-148) 05/01/18 06:56 Chloride 105.0 mmol/L (98-107) 05/01/18 06:56 Glucose 118 mg/dl (75-110) H 05/01/18 06:56 Lactate 1.5 mmol/L (0.7-2.1) 05/01/18 06:56 Sodium 138 mmol/L (132-148) 05/02/18 06:27 Potassium 4.0 mmol/L (3.6-5.2) 05/02/18 06:27 Chloride 104 mmol/L (98-107) 05/02/18 06:27 Carbon Dioxide 25 mmol/L (22-30) 05/02/18 06:27 Anion Gap 13 (10-20) 05/02/18 06:27 BUN 11 mg/dL (9-20) 05/02/18 06:27 Creatinine 0.8 mg/dL (0.8-1.5) 05/02/18 06:27 Est GFR ( Amer) > 60 05/02/18 06:27 Est GFR (Non-Af Amer) > 60 05/02/18 06:27 POC Glucose (mg/dL) 132 mg/dL (65-110) H 05/01/18 21:26 Random Glucose 150 mg/dL (75-110) H 05/02/18 06:27 Calcium 8.7 mg/dl (8.6-10.4) 05/02/18 06:27 Phosphorus 3.9 mg/dL (2.5-4.5) 05/02/18 06:27 Magnesium 1.9 mg/dL (1.6-2.3) 05/02/18 06:27 Total Bilirubin 2.1 mg/dL (0.2-1.3) H 05/02/18 06:27 AST 22 U/L (17-59) 05/02/18 06:27 ALT 32 U/L (21-72) 05/02/18 06:27 Alkaline Phosphatase 48 U/L (38-126) 05/02/18 06:27 Total Protein 7.0 g/dL (6.3-8.3) 05/02/18 06:27 Albumin 4.0 g/dL (3.5-5.0) 05/02/18 06:27 Globulin 3.0 gm/dL (2.2-3.9) 05/02/18 06:27 Albumin/Globulin Ratio 1.3 (1.0-2.1) 05/02/18 06:27 Lipase 73 U/L (23-300) 05/01/18 06:59 Venous Blood Potassium 3.5 mmol/L (3.6-5.2) L 05/01/18 06:56 Urine Color Yellow (YELLOW) 05/01/18 08:59 Urine Clarity Clear (Clear) 05/01/18 08:59 Urine pH 8.0 (5.0-8.0) 05/01/18 08:59 Ur Specific [place] 1.020 (1.003-1.030) 09/05/18 08:59 Urine Protein Negative mg/dL (NEGATIVE) 05/01/18 08:59 Urine Glucose (UA) Normal mg/dL (Normal) 05/01/18 08:59 Urine Ketones Negative mg/dL (NEGATIVE) 05/01/18 08:59 Urine Blood Negative (NEGATIVE) 05/01/18 08:59 Urine Nitrate Negative (NEGATIVE) 05/01/18 08:59 Urine Bilirubin Negative (NEGATIVE) 05/01/18 08:59 Urine Urobilinogen Normal mg/dL (0.2-1.0) 05/01/18 08:59 Ur Leukocyte Esterase Neg Ivelisse/uL (Negative) 05/01/18 08:59 Urine RBC (Auto) 1 /hpf (0-3) 05/01/18 08:59 - Hospital Course Hospital Course: This is a 48 year old female with PMHx of Colon CA found on colonoscopy s/p resection with Dr. Rg in 2015 who presented to the ED with sharp, crampy abdominal pain x 1 day. Patient reports the night prior to admission, he started to have sharp, crampy, intermittent abdominal pain. He reported not eating anything unusual. He did not take anything for the pain. He noted the pain became worse with food. Patient presents today due to continued abdominal pain that has not resolved on its own. He is able to pass gas and had a bowel movement prior to arrival to the ED. Denied fever, chills, headache, shortness of breath, chest pain, n/v/d/c, or urinary symptoms. Patient was admitted for colitis. Patient was initiated on NPO, NS/D5 @ 100cc/ hr x 2 bags, Flagyl, Cipro, Florastor, Zofran PRN. Following day, patient stated he felt much better and had tolerated a clear liquid diet. Patient denied any discomfort following eating. Patient was having natural flatulence following the diet. Patient was much improved and discharge w/ oral medications listed below. Above is only a summary of the patients stay in the hospital. For full details, please refer to full EMR chart. Below is a list of instructions provided to the patient: Patient is stable for discharge per Dr. May Follow up at Dr. Rg's office in 1 -2 weeks to schedule for elective surgery for hernia Follow up with primary doctor office in 1 - 2 weeks Please fill and take the following medications: Flagyl 500 mg 3 times a day for 8 days Ciproflaxicin 250 mg 2 times a day for 8 days Florastor 250 mg 2 times a day for 30 days Patient may continue his home medications xanax 0.25 mg PO PRN & Omeprazol 40 mg daily If florastor is expensive, patient can substitute yogurt with probiotics twice a day. If symptoms worsen or do not improve, please return to nearest emergency facility. Thank you & take care. Discharge Exam - Head Exam Head Exam: ATRAUMATIC, NORMAL INSPECTION, NORMOCEPHALIC - Eye Exam Eye Exam: EOMI, Normal appearance - ENT Exam ENT Exam: Mucous Membranes Moist - Respiratory Exam Respiratory Exam: Clear to PA & Lateral, NORMAL BREATHING PATTERN. absent: Wheezes, Respiratory Distress, Stridor - Cardiovascular Exam Cardiovascular Exam: +S1, +S2. absent: Irregular Rhythm, Systolic Murmur - GI/Abdominal Exam GI & Abdominal Exam: Normal Bowel Sounds - Extremities Exam Additional comments: Full ROM, neg calf tenderness, neg pedal edema - Neurological Exam Neurological exam: Alert, Oriented x3 - Psychiatric Exam Psychiatric exam: Normal Affect, Normal Mood - Skin Skin Exam: Dry, Intact, Normal Color, Warm Discharge Plan - Discharge Medications Prescriptions: Ciprofloxacin [Cipro] 250 mg PO Q12H #16 tab metroNIDAZOLE [Flagyl] 500 mg PO Q8H #24 tab Saccharomyces Boulardi [Florastor] 250 mg PO Q12 #60 cap - Follow Up Plan Condition: GOOD Disposition: HOME/ ROUTINE Instructions: Ciprofloxacin (Systemic), Saccharomyces boulardii, Metronidazole (Systemic), Abdominal Hernia (DC) Additional Instructions: Patient is stable for discharge per Dr. May Follow up at Dr. Rg's office in 1 -2 weeks to schedule for elective surgery for hernia Follow up with primary doctor office in 1 - 2 weeks Please fill and take the following medications: Flagyl 500 mg 3 times a day for 8 days Ciproflaxicin 250 mg 2 times a day for 8 days Florastor 250 mg 2 times a day for 30 days Patient may continue his home medications xanax 0.25 mg PO PRN & Omeprazol 40 mg daily If florastor is expensive, patient can substitute yogurt with probiotics twice a day. If symptoms worsen or do not improve, please return to nearest emergency facility. Thank you & take care. Referrals: Morgan Rg Jr., MD [Staff Provider] -
== END 2018-05-02 19:26 | disposition home or self-care (01) ==
LOC: C.ER 06:29 → C.9E 12:01 → C.5S 14:53
PROVIDERS: ADMIT Internal Medicine; ATTEND Internal Medicine
DX: K52.9 Noninfective gastroenteritis and colitis, unspecified (principal); Z85.038 Personal history of other malignant neoplasm of large intestine; J45.909 Unspecified asthma, uncomplicated; D72.829 Elevated white blood cell count, unspecified
CPT/HCPCS: 36415; 74177; 80053; 81001; 82803; 82948; 83690; 83735; 84100; 85025; 96360; 96365; 96374; 99285; C9113; G0378; J0744; J1885; J2405; J2543; J2920; J7030; J7042; Q9966; Q9967

== ENCOUNTER 2018-06-12 07:33 | Observation (INO) | payer OTHER ==
[~2018-06-12 07:33] MED LIST: Bupivacaine HCl 0.25% PF (10 ml) Inj ONE; ceFAZolin IV 1 gm in Dextrose 2 GM/100 ML BAG IVPB ONE
[2018-06-12] MEDS ORDERED: Midazolam 2 MG/2 ML VIAL ONE (09:03)
[2018-06-12] MEDS ORDERED: Propofol 10 mg/ml Inj (20 ML) ONE (09:03)
[2018-06-12] MEDS ORDERED: Bupivacaine-Epi 0.5%-1:200,000 PF Inj IJ ONE (09:28)
[2018-06-12] MEDS ORDERED: ePHEDrine 50 mg/ml Inj ONE (10:21)
[2018-06-12] MEDS ORDERED: Neostigmine Methylsulfate 3mg/3ml Syringe IV ONE (10:22)
--- NOTE | 2018-06-12 10:35 | PCM.SURG1 ---
Surgeon's Initial Post Op Note - Surgeon's Notes Surgeon: MARG[employer] Mechanical Design Engineer: O Type of Anesthesia: General LMA Anesthesia Administered By: KELLY Pre-Operative Diagnosis: INCISIONAL HERNIA Operative Findings: 6CM LENGTH X 5 CM UPPER MIDLINE DEFECT Post-Operative Diagnosis: SAME Operation Performed: REPAIR OF INCISIONAL HERNIA WITH MESH. [id number] Specimen/Specimens Removed: 0 Estimated Blood Loss: EBL {In ML}: 50 Blood Products Given: N/A Drains Used: No Drains Post-Op Condition: Good Date of Surgery/Procedure: 06/12/18 Time of Surgery/Procedure: 10:35
[2018-06-12] MEDS ORDERED: HYDROmorphone 1 mg/ml ISec IVP PRN (10:39)
[2018-06-12] MEDS: HYDROmorphone 0.5 mg/0.5 ml ISec IVP PRN ×5 (11:02→11:42)
--- NOTE | 2018-06-12 14:02 | OP ---
PROCEDURE DATE: 06/12/2018 PREOPERATIVE DIAGNOSIS: Incisional hernia. POSTOPERATIVE DIAGNOSIS: Incisional hernia. PROCEDURE CARRIED OUT: Repair of incisional hernia with mesh. SURGEON: Morgan Rg Jr., MD ASSISTANTS: None. ANESTHESIOLOGIST: Guy Olivier CRNA INDICATION FOR THE PROCEDURE: The patient is a middle-aged man with a history of colon cancer resected last year. He has developed an incisional hernia in the upper midline incision. OPERATIVE FINDINGS: An 11 x 14 Ventrio mesh was used. This was placed into the peritoneal cavity. Omentum was placed between the bowel and the posterior surface of the mesh. DESCRIPTION OF PROCEDURE: The patient was given general anesthesia, intravenous antibiotics. The area of the defect had been marked down on the skin. Incision was made larger than this. The bowel and adhesions were dissected away. There were no enterotomies made and this was checked three separate times. Blood loss during the procedure was approximately 50 mL. After dissecting out and freshening up the edges, we then placed the 11 x 14 mesh, which was much greater than the size of the defect. We placed into position and secured it at the top and at the bottom, and then secured the surface layer to the fascia incorporating into the fascial closure. Blood loss of the procedure was as mentioned. There were no operative complications. Marcaine was injected. Skin was closed the skin. Operation carried out was repair of incisional hernia with mesh. Morgan Rg Jr., MD
[2018-06-12] MEDS ORDERED: Lactated Ringer's 1,000 ML IV ONE (15:15)
[2018-06-12] MEDS: HYDROmorphone 0.5 mg/0.5 ml ISec IVP STA (15:40)
[2018-06-12] MEDS ORDERED: Oxycodone/Acetaminophen 5/325 mg Tab PO PRN (15:48)
[2018-06-12 17:53] VITALS: RESP 20
[2018-06-12 18:44] VITALS: O2SAT 96
[2018-06-12] MEDS: Lactated Ringer's 1,000 ML IV SCH (21:36)
[2018-06-13] MEDS: Lactated Ringer's 1,000 ML IV SCH ×2 (07:21→07:22)
[2018-06-13] MEDS: HYDROmorphone 0.5 mg/0.5 ml ISec IVP STA (07:22)
[2018-06-13 07:57] LABS: MEAN CELL VOLUME 85.6 fL (80.0-94.0); MEAN CORPUSCULAR HGB CONC 33.9 g/dL (33.0-37.0); MEAN PLATELET VOLUME 8.4 fL (7.2-11.7); RBC 4.83 Mil/uL (4.40-5.90); RED CELL DISTRIBUTION WIDTH 12.8 % (11.5-14.5)
[2018-06-13 08:18] VITALS: BP 120/77; PULSE 86; TEMP 99.5
[2018-06-13] MEDS ORDERED: Pneumococcal 23-Valent Vaccine IM ONE (10:00)
[2018-06-13] MEDS ORDERED: Influenza Vaccine 60 MCG/0.5 ML SYR (3 yr & up) IM ONE (10:00)
--- NOTE | 2018-06-13 14:42 | CP.PCM.DIS ---
Provider - Provider Date of Admission: 06/12/18 16:53 Attending physician: Morgan Rg Jr, MD Time Spent in preparation of Discharge (in minutes): 45 Hospital Course - Lab Results Lab Results: Most Recent Lab Values WBC 11.0 K/uL (4.8-10.8) H D 06/13/18 06:41 RBC 4.83 Mil/uL (4.40-5.90) 06/13/18 06:41 Hgb 14.0 g/dL (12.0-18.0) 06/13/18 06:41 Hct 41.3 % (35.0-51.0) 06/13/18 06:41 MCV 85.6 fL (80.0-94.0) 06/13/18 06:41 MCH 29.0 pg (27.0-31.0) 06/13/18 06:41 MCHC 33.9 g/dL (33.0-37.0) 06/13/18 06:41 RDW 12.8 % (11.5-14.5) 06/13/18 06:41 Plt Count 191 K/uL (130-400) 06/13/18 06:41 MPV 8.4 fL (7.2-11.7) 06/13/18 06:41 - Hospital Course Hospital Course: 48 M came w hernia repair pt had surigical site bleeding. Pt was admitted for observation overnight. Following day, pt tolerated diet, pain. Bleeding stopped. Pt was cleared to go home. Discharge Exam - Head Exam Head Exam: ATRAUMATIC, NORMAL INSPECTION, NORMOCEPHALIC - Eye Exam Eye Exam: EOMI, Normal appearance, PERRL Pupil Exam: NORMAL ACCOMODATION, PERRL - ENT Exam ENT Exam: Mucous Membranes Moist - Neck Exam Neck exam: Full Rom - Respiratory Exam Respiratory Exam: UNREMARKABLE - Cardiovascular Exam Cardiovascular Exam: REGULAR RHYTHM - GI/Abdominal Exam GI & Abdominal Exam: Soft. absent: Distended, Firm, Tenderness - Exam Exam: NORMAL INSPECTION - Extremities Exam Extremities exam: full ROM - Back Exam Back exam: FULL ROM - Neurological Exam Neurological exam: Alert, CN II-XII Intact, Normal Gait, Oriented x3, Reflexes Normal - Psychiatric Exam Psychiatric exam: Normal Affect, Normal Mood - Skin Skin Exam: Dry, Intact, Normal Color, Warm Discharge Plan - Discharge Medications Prescriptions: oxyCODONE/Acetaminophen [Percocet 5/325 mg Tab] 1 tab PO Q4H PRN #20 tab PRN Reason: Pain, Moderate (4-7) - Follow Up Plan Condition: GOOD Disposition: HOME/ ROUTINE Instructions: Abdominal Hernia Repair (DC) Additional Instructions: Call Dr. Rg's office to make a follow up appointment in 2 weeks Do not remove the outer dressings until 06/15, leave tape underneath on until they fall off You may shower but must keep dressings dry until 06/15 Take pain medication as needed--take stool softener if you are taking the pain medication No lifting >10 pounds for 4-6 weeks, or until Dr. Rg clears you Call Dr. Rg's office or come to ER for bleeding, fever >100.4, nausea and vomiting, or any other concerning symptoms Referrals: Morgan Rg Jr., MD [Staff Provider] -
== END 2018-06-13 10:49 | disposition home or self-care (01) ==
LOC: C.SDS 07:33 → C.3T 16:53 → C.9S 16:53 → C.SDS 16:53
PROVIDERS: ADMIT Surgery Vascular Surgery; ATTEND Surgery Vascular Surgery
DX: K43.2 Incisional hernia without obstruction or gangrene (principal)
CPT/HCPCS: 36415; 49560; 49568; 85027; C1781; G0378; J0690; J1170; J2250; J2405; J2704; J2710; J3010; J7120

== ENCOUNTER 2018-06-17 15:30 | Inpatient (IN) | payer OTHER ==
[2018-06-17 15:31] VITALS: BMI 30.7
[2018-06-17] MEDS ORDERED: Sodium Chloride 0.9% 1,000 ML IV ONE (15:46)
[2018-06-17] MEDS ORDERED: Morphine 4 MG/ML VIAL ONE (15:56)
[2018-06-17] MEDS ORDERED: Sodium Chloride 0.9% 1,000 ML ONE (15:56)
[2018-06-17] MEDS ORDERED: Ciprofloxacin 400mg/200ml D5W 400 MG/200 ML BAG IV STA (16:09)
[2018-06-17] MEDS ORDERED: metroNIDAZOLE IV 500 mg/100 ml 500 MG/100 ML BAG IV STA (16:10)
--- NOTE | 2018-06-17 16:19 | C.PDOC ---
History Of Present Illness Patient sent to ED by his surgeon Dr. Rg for evaluation. Patient is s/p incisional hernia repair on 06/12/18, has been having pain at site which worsened this morning. Patient sent for outpatient CT scan today - shows incarcerated ventral hernia. PMHx of colon CA s/p resection, gastritis Time Seen by Provider: 06/17/18 15:32 Chief Complaint (Nursing): Abdominal Pain History Per: Patient, Family, Other (Dr. Rg) History/Exam Limitations: no limitations Onset/Duration Of Symptoms: Days Current Symptoms Are (Timing): Worse (today) Severity: Moderate Radiation Of Pain To:: None Past Medical History Reviewed: Historical Data, Nursing Documentation, Vital Signs Vital Signs: Last Vital Signs Temp 98.5 F 06/17/18 15:35 Pulse 80 06/17/18 15:35 Resp 18 06/17/18 15:35 BP 154/92 H 06/17/18 15:35 Pulse Ox 95 06/17/18 15:35 - Medical History PMH: Anemia, Anxiety, Asthma ( A CHILD), Colonic Polyps (CANCEROUS), Gastritis Surgical History: Endoscopy - [facility] Procedures RESECTION OF APPENDIX, OPEN APPROACH (07/12/16) RESECTION OF LEFT LARGE INTESTINE, OPEN APPROACH (07/12/16) Family History: States: No Known Family Hx - Social History Hx Tobacco Use: No Hx Alcohol Use: Yes Hx Substance Use: No - Immunization History Hx Tetanus Toxoid Vaccination: No Hx Influenza Vaccination: No Hx Pneumococcal Vaccination: No Review Of Systems Constitutional: Negative for: Fever, Chills Cardiovascular: Negative for: Chest Pain Respiratory: Negative for: Shortness of Breath Gastrointestinal: Positive for: Nausea, Abdominal Pain, Diarrhea (yesterday ). Negative for: Vomiting Genitourinary: Negative for: Dysuria, Hematuria Physical Exam - Physical Exam Appears: Well, Non-toxic, In Acute Distress (in moderate pain) Skin: Normal Color, Warm, Dry Oral Mucosa: Moist Cardiovascular: Rhythm Regular Respiratory: Normal Breath Sounds, No Rales, No Rhonchi, No Wheezing Gastrointestinal/Abdominal: Soft, No Guarding, No Rebound, Other (diffuse abdominal TTP greatest at surgical wound (above umbilicus), small amount of bleeding at inferior apsect, (+) mild swelling without erythema or purulent discharge) Neurological/Psych: Oriented x3 ED Course And Treatment - Laboratory Results Result Diagrams: 06/17/18 16:19 O2 Sat by Pulse Oximetry: 95 (RA) Pulse Ox Interpretation: Normal - CT Scan/US ct abd/pelvis Other Rad Studies (CT/US): Read By Radiologist, Radiology Report Reviewed CT/US Interpretation: Accession No. : [id number]. Patient Name / ID : RUTHY FIGUEROA / [id number]. Exam Date : 06/17/2018 14:49:34 ( Approved ). Study Comment : Sex / Age : M / 48Y. Creator : Frankie Wynn MD. Dictator : Frankie Wynn MD. Masseur/Masseuse : Anthropologist Physical : Frankie Wynn MD. Approver2 : Report Date : 06/17/2018 15:37:14. My Comment : . Date of service: 06/17/2018. PROCEDURE: CT Abdomen and Pelvis without intravenous contrast. HISTORY: postop hernia. COMPARISON: Comparison is made to the previous study dated 05/01/2018. TECHNIQUE: Axial and reformatted coronal and sagittal CT images of the abdomen and pelvis were obtained without IV or oral contrast administration.. Contrast dose: 0. Radiation dose: Total exam DLP = 1259.21 mGy-cm. This CT exam was performed using one or more of the following dose reduction techniques: Automated exposure control, adjustment of the mA and/or kV according to patient size, and/or use of iterative reconstruction technique. FINDINGS: LOWER THORAX: Unremarkable. LIVER: Diffuse heterogeneous attenuation of the liver is again noted suggestive of fatty liver infiltration. GALLBLADDER AND BILE DUCTS: No evidence of acute cholecystitis. PANCREAS: Unremarkable. No gross lesion or ductal dilatation. SPLEEN: Unremarkable. ADRENALS: Unremarkable. No mass. KIDNEYS AND URETERS: Unremarkable. No hydronephrosis. No solid mass. VASCULATURE: Unremarkable. No aortic aneurysm. No aortic atherosclerotic calcification or mural plaque present. BOWEL: Interval appearance of moderately dilated small bowel loops at the lower abdomen likely due to incarcerated hernia /ventral hernia adjacent to the umbilicus noted. The distal small bowel loops and the large bowel loops are partially collapse. There are postsurgical anastomosis noted at the distal descending colon. APPENDIX: There is no evidence of appendicitis. PERITONEUM: There is a questionable trace free fluid in the lower abdomen. LYMPH NODES: Unremarkable. No enlarged lymph nodes. BLADDER: Unremarkable. REPRODUCTIVE: Unremarkable. BONES: No acute fracture. OTHER FINDINGS: None. IMPRESSION: Findings suggestive of small bowel obstruction secondary to incarcerated ventral hernia adjacent to the umbilicus. Small amount of fluid noted in the herniated sac and questionable trace free fluid in the lower abdomen. Progress Note: Blood work ordered and reviewed. Outpatient CT scan reviewed. Patient given IV NS bolus, IV morphine and IV zofran. IV antibiotics given. - Physician Consult Information Physician Contacted: Morgan Rg Jr. Outcome Of Conversation: Discussed patient with surgeon, he agrees with admission to his service for postop abdominal pain, wound bleeding, incarcerated ventral hernia. Surgery resident paged. Patient to go to ER tomorrow. Disposition - Disposition Forms: [employer] ([place])
[2018-06-17 16:23] LABS: BASO # 0.1 K/uL (0.0-0.2); BASO % 0.7 % (0.0-2.0); EOS # 0.1 K/uL (0.0-0.7); EOS % 0.5 % (0.0-4.0); HEMOGLOBIN 16.3 g/dL (12.0-18.0); LYMPH % 7.1 % (20.0-40.0); MEAN CORPUSCULAR HEMOGLOBIN 28.2 pg (27.0-31.0); MEAN CORPUSCULAR HGB CONC 33.2 g/dL (33.0-37.0); MONO # 0.4 K/uL (0.0-0.8); MONO % 3.1 % (0.0-10.0); NEUT # 12.4 K/uL (1.8-7.0); NEUT % 88.6 % (50.0-75.0); NRBC % 0.2 % (0.0-2.0); PLATELET COUNT 314 K/uL (130-400); RBC 5.78 Mil/uL (4.40-5.90); RED CELL DISTRIBUTION WIDTH 12.6 % (11.5-14.5); WHITE BLOOD COUNT 14.1 K/uL (4.8-10.8)
[2018-06-17 16:40] LABS: ALB/GLOB RATIO 1.2 (1.0-2.1); ALBUMIN 4.9 g/dL (3.5-5.0); ALT/SGPT 72 U/L (21-72); AST/SGOT 40 U/L (17-59); BLOOD UREA NITROGEN 18 mg/dL (9-20); GFR NON-AFRICAN AMERICAN > 60
--- NOTE | 2018-06-17 16:57 | CP.PCM.HP ---
History of Present Illness - History of Present Illness History of Present Illness: General Surgery H&P HPI: Patient is a 48 year old male s/p incisional hernia repair with mesh on 06/12/2018, with PMHx of colon cancer came with recurrent hernia. Patient complained of severe abdominal pain and nausea that has progressively worsened. Patient contacted Dr. Ifrah sosa to worsening pain and instructed to come to office.Patient was sent to CT scan which showed incarcerated ventral hernia. Patient also has noticed bleeding from incision that has worsened today. Patient denies vomiting, fever, chills, chest pain, shortness of breath, dysuria, hematuria. PMHx: Colon Cancer (2015) PSHx: Colon Resection, Incisional Hernia Repair (06/12/2018) Allergies: NKDA Medications: Xanax 0.25mg PRN Present on Admission - Present on Admission Any Indicators Present on Admission: No Review of Systems - Review of Systems All systems: reviewed and no additional remarkable complaints except (per HPI) Past Patient History - Infectious Disease Hx of Infectious Diseases: None - Past Medical History & Family History Past Medical History?: Yes - Past Social History Smoking Status: Never Smoked - CARDIAC Hx Cardiac Disorders: No Hx Heart Attack: No - PULMONARY Hx Asthma: Yes ( A CHILD) - NEUROLOGICAL Hx Transient Ischemic Attacks (TIA): No - HEENT Hx HEENT Problems: No - RENAL Hx Chronic Kidney Disease: No - ENDOCRINE/METABOLIC Hx Endocrine Disorders: No - HEMATOLOGICAL/ONCOLOGICAL Hx Anemia: Yes - INTEGUMENTARY Hx Dermatological Problems: No - MUSCULOSKELETAL/RHEUMATOLOGICAL Hx Fractures: No - GASTROINTESTINAL Hx Gastritis: Yes - GENITOURINARY/GYNECOLOGICAL Hx Genitourinary Disorders: No - PSYCHIATRIC Hx Anxiety: Yes Hx Substance Use: No - SURGICAL HISTORY Hx Surgeries: Yes Other/Comment: COLECTOMY 06/2016 - ANESTHESIA Hx Anesthesia: Yes Hx Anesthesia Reactions: No Hx Malignant Hyperthermia: No Meds Allergies/Adverse Reactions: Allergies Allergy/AdvReac Type Severity Reaction Status Date / Time No Known Allergies Allergy Verified 06/06/18 08:25 Physical Exam - Constitutional Appears: Non-toxic, No Acute Distress - Head Exam Head Exam: ATRAUMATIC, NORMAL INSPECTION - Eye Exam Eye Exam: EOMI, Normal appearance. absent: Scleral icterus Pupil Exam: NORMAL ACCOMODATION - ENT Exam ENT Exam: Mucous Membranes Moist, Normal Exam - Neck Exam Neck exam: Positive for: Normal Inspection - Respiratory Exam Respiratory Exam: NORMAL BREATHING PATTERN - Cardiovascular Exam Cardiovascular Exam: REGULAR RHYTHM, +S1, +S2. absent: Irregular Rhythm, RRR, Rubs, +S4 - GI/Abdominal Exam GI & Abdominal Exam: Normal Bowel Sounds, Tenderness. absent: Distended, Rebound, Rigid Additional comments: Midline incision closed with diana, ventral hernia. TTP. SS fluids draining. - Extremities Exam Extremities exam: Positive for: normal inspection. Negative for: calf tenderness, pedal edema - Back Exam Back exam: NORMAL INSPECTION - Neurological Exam Neurological exam: Alert, CN II-XII Intact, Oriented x3 - Psychiatric Exam Psychiatric exam: Normal Affect, Normal Mood - Skin Skin Exam: Normal Color, Warm Results - Vital Signs Recent Vital Signs: Last Vital Signs Temp 98.5 F 06/17/18 15:35 Pulse 80 06/17/18 15:35 Resp 18 06/17/18 15:35 BP 154/92 H 06/17/18 15:35 Pulse Ox 95 06/17/18 16:33 - Labs Result Diagrams: 06/17/18 16:19 06/17/18 16:19 Labs: Laboratory Results - last 24 hr 06/17/18 06/17/18 16:19 16:19 WBC 14.1 H RBC 5.78 Hgb 16.3 Hct 49.2 MCV 85.0 MCH 28.2 MCHC 33.2 RDW 12.6 Plt Count 314 MPV 8.0 Neut % (Auto) 88.6 H Lymph % (Auto) 7.1 L [place] % (Auto) 3.1 Eos % (Auto) 0.5 Baso % (Auto) 0.7 Neut # (Auto) 12.4 H Lymph # (Auto) 1.0 [place] # (Auto) 0.4 Eos # (Auto) 0.1 Baso # (Auto) 0.1 Sodium 142 Potassium 5.0 Chloride 99 Carbon Dioxide 28 Anion Gap 20 BUN 18 Creatinine 0.9 Est GFR ( Amer) > 60 Est GFR (Non-Af Amer) > 60 Random Glucose 127 H Calcium 10.0 Total Bilirubin 1.7 H AST 40 ALT 72 D Alkaline Phosphatase 100 Total Protein 8.8 H Albumin 4.9 Globulin 3.9 Albumin/Globulin Ratio 1.2 Assessment & Plan - Assessment and Plan (Free Text) Assessment: Patient is a 48 year old male s/p incisional hernia repair with mesh on 06/12/2018 who presents to ED with recurrent ventral hernia. - OR tomorrow - Consented for Open ventral hernia repair with mesh - NPO pMN - IVF - DVT ppx - GI ppx discussed with Dr. Rg
[2018-06-17 17:01] LABS: BASOPHIL 1 % (0-2); EOSINOPHIL 1 % (0-4); LYMPHOCYTE 5 % (20-40); MONOCYTE 3 % (0-10); NEUTROPHIL 90 % (50-75); PLATELET ESTIMATE NORMAL (NORMAL); TOTAL CELLS COUNTED 100
[2018-06-17] MEDS ORDERED: metroNIDAZOLE IV 500 mg/100 ml 500 MG/100 ML BAG ONE (17:29)
[2018-06-17] MEDS ORDERED: Ciprofloxacin 400mg/200ml D5W 400 MG/200 ML BAG IVPB ONE (17:29)
[2018-06-17] MEDS: HYDROmorphone 0.5 mg/0.5 ml ISec IVP PRN (20:06)
[2018-06-17] MEDS: Sodium Chloride 0.9% 1,000 ML IV SCH (20:06)
[2018-06-18] MEDS: HYDROmorphone 0.5 mg/0.5 ml ISec IVP PRN ×4 (00:08→22:22)
[2018-06-18] MEDS: Sodium Chloride 0.9% 1,000 ML IV SCH ×4 (03:04→23:52)
[2018-06-18 07:58] LABS: BASO % 0.5 % (0.0-2.0); EOS # 0.1 K/uL (0.0-0.7); EOS % 1.3 % (0.0-4.0); LYMPH # 1.8 K/uL (1.0-4.3); MEAN CELL VOLUME 84.8 fL (80.0-94.0); MEAN CORPUSCULAR HEMOGLOBIN 28.8 pg (27.0-31.0); MEAN CORPUSCULAR HGB CONC 33.9 g/dL (33.0-37.0); MEAN PLATELET VOLUME 7.9 fL (7.2-11.7); MONO # 0.7 K/uL (0.0-0.8); MONO % 7.5 % (0.0-10.0); NEUT # 7.2 K/uL (1.8-7.0); NEUT % 72.7 % (50.0-75.0); RBC 4.92 Mil/uL (4.40-5.90); RED CELL DISTRIBUTION WIDTH 12.1 % (11.5-14.5); WHITE BLOOD COUNT 9.9 K/uL (4.8-10.8)
[2018-06-18 08:03] LABS: HEMOGLOBIN 14.1 g/dL (12.0-18.0)
[2018-06-18 08:17] LABS: ALB/GLOB RATIO 1.3 (1.0-2.1); ALBUMIN 3.8 g/dL (3.5-5.0); ALT/SGPT 52 U/L (21-72); AST/SGOT 30 U/L (17-59); BLOOD UREA NITROGEN 17 mg/dL (9-20); CALCIUM 8.7 mg/dl (8.6-10.4); GFR NON-AFRICAN AMERICAN > 60
[2018-06-18] MEDS ORDERED: Bupivacaine-Epi 0.5%-1:200,000 PF Inj IJ ONE (11:30)
[2018-06-18 13:37] LABS: INR 1.1; PROTHROMBIN TIME 12.3 SECONDS (9.7-12.2)
[2018-06-18] MEDS ORDERED: Propofol 10 mg/ml 2,000 MG/200 ML VIAL ONE (15:47)
[2018-06-18] MEDS ORDERED: Midazolam 2 MG/2 ML VIAL ONE (15:57)
[2018-06-18] MEDS ORDERED: ceFAZolin IV 1 gm in Dextrose 2 GM/100 ML BAG IVPB ONE (16:12)
[2018-06-18] MEDS ORDERED: Bupivacaine Liposomal Inj 20 ml INFIL ONE (16:32)
[2018-06-18] MEDS ORDERED: Neostigmine Methylsulfate 3mg/3ml Syringe IV ONE (18:10)
--- NOTE | 2018-06-18 18:27 | PCM.SURG1 ---
Surgeon's Initial Post Op Note - Surgeon's Notes Surgeon: Dr. Rg Pediatric Clinical Nurse Specialist: Dr. Danny Martin PGY-3, Arminda Wright OMS-4 Type of Anesthesia: General Endo, Local Anesthesia Administered By: Dr. Basilio Pre-Operative Diagnosis: Recurrent ventral hernia Operative Findings: Recurrent ventral hernia Post-Operative Diagnosis: Recurrent ventral hernia Operation Performed: Open Ventral Hernia Repair with Mesh Specimen/Specimens Removed: peritoneal fluids Estimated Blood Loss: EBL {In ML}: 200 Blood Products Given: N/A Drains Used: No Drains Post-Op Condition: Good Date of Surgery/Procedure: 06/18/18 Time of Surgery/Procedure: 16:00
[2018-06-18] MEDS ORDERED: Oxycodone/Acetaminophen 5/325 mg Tab PO PRN (18:50)
[2018-06-18 20:23] VITALS: O2SAT 95
[2018-06-18] MEDS ORDERED: Succinylcholine Chloride 20 mg/ml Syr (5 ml) IV ONE (21:00)
[2018-06-19] MEDS: HYDROmorphone 0.5 mg/0.5 ml ISec IVP PRN ×5 (02:30→20:05)
--- NOTE | 2018-06-19 05:04 | OP ---
PROCEDURE DATE: 06/18/2018 PREOPERATIVE DIAGNOSIS: Fascial dehiscence, status post repair of incisional hernia. POSTOPERATIVE DIAGNOSIS: Fascial dehiscence, status post repair of incisional hernia. PROCEDURE CARRIED OUT: Repair of wound dehiscence, repair of hernia with placement of 13.8 x 17.8 Ventrio mesh. SURGEON: Morgan Rg Jr., MD DRYWALLER: Dr. Danny Martin ANESTHESIOLOGIST: Dr. Westfall. INDICATIONS: The patient is a middle-aged man with history of colon cancer, underwent elective repair of hernia last week. He complains of pain yesterday afternoon, seen. CAT scan revealed dehiscence of the fascia. OPERATIVE FINDINGS: There is no evidence of any pus. The culture was taken. There is a small hematoma in the wound. The mesh was still intact but detached from the left side and the bowel was pushing up around it. We then removed the mesh, dissected this all out, controlled any bleeding, and there was a moderate amount of bleeding. The blood loss is approximately 150 to 200 mL. After we controlled this completely, we then irrigated this out completely, checked numerous times the bowel, and made sure that the bowel was intact, and that there was no evidence of bowel injury or serosal tears. After we have done this, and we are satisfied with the hemostasis, we irrigated with Irrisept. We then placed Intercede mesh over the bowel and placed the Ventrio mesh on top of this. This was secured at the top and the bottom with sutures, secured in the midline with the fascial sutures, and the edges packed up with the packing device on both sides. It was quite secure with the closure and quite secure with the placement. After this had been done, we then closed the fascia as mentioned and closed the skin with skin clips. Blood loss as mentioned. No operative complications. Procedure carried out is repair of fascial dehiscence and repair of incisional hernia with mesh. The operation is more complicated than usual due to all above mentioned reasons. Morgan Rg Jr., MD
[2018-06-19] MEDS ORDERED: Simethicone 80 mg Chewtab PO STA (05:45)
[2018-06-19 08:37] LABS: BASO % 0.3 % (0.0-2.0); EOS % 0.2 % (0.0-4.0); LYMPH # 1.2 K/uL (1.0-4.3); MEAN CELL VOLUME 84.5 fL (80.0-94.0); MEAN CORPUSCULAR HEMOGLOBIN 27.9 pg (27.0-31.0); MEAN PLATELET VOLUME 8.1 fL (7.2-11.7); MONO # 1.1 K/uL (0.0-0.8); MONO % 8.7 % (0.0-10.0); NEUT # 10.8 K/uL (1.8-7.0); NEUT % 81.8 % (50.0-75.0); PLATELET COUNT 276 K/uL (130-400); RBC 4.23 Mil/uL (4.40-5.90); RED CELL DISTRIBUTION WIDTH 12.1 % (11.5-14.5); WHITE BLOOD COUNT 13.2 K/uL (4.8-10.8)
[2018-06-19 08:41] LABS: HEMOGLOBIN 11.8 g/dL (12.0-18.0)
[2018-06-19] MEDS: Sodium Chloride 0.9% 1,000 ML IV SCH ×2 (09:00→18:32)
[2018-06-19 09:18] LABS: BANDS 5 % (0-2); EOSINOPHIL 1 % (0-4); LYMPHOCYTE 10 % (20-40); MONOCYTE 7 % (0-10); NEUTROPHIL 77 % (50-75); PLATELET ESTIMATE NORMAL (NORMAL); TOTAL CELLS COUNTED 100
[2018-06-19 09:19] LABS: HYPOCHROMIC SLIGHT; TOXIC GRANULATION PRESENT
[2018-06-19] MEDS: Enoxaparin 30 mg Syringe SC SCH (10:27)
--- NOTE | 2018-06-19 12:04 | CP.PCM.PN ---
Subjective - Date & Time of Evaluation Date of Evaluation: 06/19/18 Time of Evaluation: 12:00 - Subjective Subjective: 48M s/p recurrentl ventral hernia repair was seen and examined at bedside. Patient did not have any bowel movement yet and agreed to take suppository. Patient complains of diffuse epigastric pain and tenderness. Patient denies any fever, chest pain, SOB or N/V. Objective - Vital Signs/Intake and Output Vital Signs (last 24 hours): Temp Pulse Resp BP Pulse Ox 99.3 F 80 20 113/71 95 06/19/18 08:00 06/19/18 08:00 06/19/18 08:00 06/19/18 08:00 06/19/18 08:00 Intake and Output: 06/19/18 06/19/18 06:59 18:59 Intake Total 500 Balance 500 - Medications Medications: Current Medications Alprazolam (Xanax) 0.25 mg PO TID PRN PRN Reason: Anxiety Stop: 06/24/18 17:11 Last Admin: 06/18/18 20:13 Dose: 0.25 mg Docusate Sodium (Colace) 100 mg PO BID [facility] Last Admin: 06/19/18 10:27 Dose: 100 mg Enoxaparin Sodium (Lovenox) 30 mg SC DAILY [facility] Last Admin: 06/19/18 10:27 Dose: 30 mg Hydromorphone HCl (Dilaudid) 0.5 mg IVP Q4H PRN PRN Reason: Pain, moderate (4-7) Last Admin: 06/19/18 11:09 Dose: 0.5 mg Hydromorphone HCl (Dilaudid) 0.5 mg IVP Q15M PRN PRN Reason: Pain, severe (8-10) Last Admin: 06/18/18 19:20 Dose: 0.5 mg Sodium Chloride (Sodium Chloride 0.9%) 1,000 mls @ 100 mls/hr IV .Q10H [facility] Last Admin: 06/18/18 23:52 Dose: Not Given Cefazolin Sodium 500 mg/ (Sodium Chloride) 100 mls @ 100 mls/hr IVPB Q8H [facility]; Protocol Last Admin: 06/19/18 10:30 Dose: 100 mls/hr Ondansetron HCl (Zofran Inj) 4 mg IVP Q4 PRN PRN Reason: Nausea/Vomiting Oxycodone/Acetaminophen (Percocet 5/325 Mg Tab) 2 tab PO Q4H PRN PRN Reason: Pain, moderate (4-7) Stop: 06/21/18 18:51 - Labs Labs: 06/19/18 08:15 06/18/18 07:37 PT 12.3 SECONDS (9.7-12.2) H 06/18/18 13:25 INR 1.1 06/18/18 13:25 APTT 37 SECONDS (21-34) H 06/18/18 13:25 - Constitutional Appears: Well, No Acute Distress - Head Exam Head Exam: ATRAUMATIC, NORMAL INSPECTION, NORMOCEPHALIC - Respiratory Exam Respiratory Exam: NORMAL BREATHING PATTERN. absent: Accessory Muscle Use - GI/Abdominal Exam GI & Abdominal Exam: Tenderness. absent: Guarding Assessment and Plan - Assessment and Plan (Free Text) Assessment: 48M s/p recurrent ventral hernia repair with epigastric pain and tenderness Plan: Monitor Bowel movement Continue ICS Encourage ambulation Pain medication as needed Plan to D/C on 06/20 D/W Dr. Rg
[2018-06-20 04:55] VITALS: PULSE 88
[2018-06-20] MEDS: HYDROmorphone 0.5 mg/0.5 ml ISec IVP PRN (04:59)
[2018-06-20] MEDS: Sodium Chloride 0.9% 1,000 ML IV SCH (06:06)
[2018-06-20 08:38] VITALS: BP 104/69; RESP 20; TEMP 98.8
--- NOTE | 2018-06-20 10:00 | CP.PCM.DIS ---
Provider - Provider Date of Admission: 06/17/18 16:29 Attending physician: Morgan Rg Jr, MD Time Spent in preparation of Discharge (in minutes): 45 Diagnosis - Discharge Diagnosis (1) Ventral hernia Status: Chronic Hospital Course - Lab Results Lab Results: Micro Results 06/17/18 16:50 Blood Blood Culture - Preliminary NO GROWTH AFTER 48 HOURS 06/17/18 15:51 Blood Blood Culture - Preliminary NO GROWTH AFTER 48 HOURS 06/18/18 19:21 Other: Please Indicate Gram Stain - Final 06/18/18 19:21 Other: Please Indicate Wound Culture - Preliminary NO GROWTH AFTER 24 HOURS Most Recent Lab Values WBC 13.2 K/uL (4.8-10.8) H 06/19/18 08:15 RBC 4.23 Mil/uL (4.40-5.90) L 06/19/18 08:15 Hgb 11.8 g/dL (12.0-18.0) L D 06/19/18 08:15 Hct 35.8 % (35.0-51.0) 06/19/18 08:15 MCV 84.5 fL (80.0-94.0) 06/19/18 08:15 MCH 27.9 pg (27.0-31.0) 06/19/18 08:15 MCHC 33.0 g/dL (33.0-37.0) 06/19/18 08:15 RDW 12.1 % (11.5-14.5) 06/19/18 08:15 Plt Count 276 K/uL (130-400) 06/19/18 08:15 MPV 8.1 fL (7.2-11.7) 06/19/18 08:15 Neut % (Auto) 81.8 % (50.0-75.0) H 06/19/18 08:15 Lymph % (Auto) 9.0 % (20.0-40.0) L 06/19/18 08:15 [facility] % (Auto) 8.7 % (0.0-10.0) 06/19/18 08:15 Eos % (Auto) 0.2 % (0.0-4.0) 06/19/18 08:15 Baso % (Auto) 0.3 % (0.0-2.0) 06/19/18 08:15 Neut # (Auto) 10.8 K/uL (1.8-7.0) H 06/19/18 08:15 Lymph # (Auto) 1.2 K/uL (1.0-4.3) 06/19/18 08:15 [facility] # (Auto) 1.1 K/uL (0.0-0.8) H 06/19/18 08:15 Eos # (Auto) 0.0 K/uL (0.0-0.7) 06/19/18 08:15 Baso # (Auto) 0.0 K/uL (0.0-0.2) 06/19/18 08:15 Neutrophils % (Manual) 77 % (50-75) H 06/19/18 08:15 Band Neutrophils % 5 % (0-2) H 06/19/18 08:15 Lymphocytes % (Manual) 10 % (20-40) L 06/19/18 08:15 Monocytes % (Manual) 7 % (0-10) 06/19/18 08:15 Eosinophils % (Manual) 1 % (0-4) 06/19/18 08:15 Basophils % (Manual) 1 % (0-2) 06/17/18 16:19 Toxic Granulation Present 06/19/18 08:15 Platelet Estimate Normal (NORMAL) 06/19/18 08:15 Hypochromasia (manual) Slight 06/19/18 08:15 PT 12.3 SECONDS (9.7-12.2) H 06/18/18 13:25 INR 1.1 06/18/18 13:25 APTT 37 SECONDS (21-34) H 06/18/18 13:25 Sodium 140 mmol/L (132-148) 06/18/18 07:37 Potassium 4.1 mmol/L (3.6-5.2) 06/18/18 07:37 Chloride 102 mmol/L (98-107) 06/18/18 07:37 Carbon Dioxide 26 mmol/L (22-30) 06/18/18 07:37 Anion Gap 16 (10-20) 06/18/18 07:37 BUN 17 mg/dL (9-20) 06/18/18 07:37 Creatinine 1.0 mg/dL (0.8-1.5) 06/18/18 07:37 Est GFR ( Amer) > 60 06/18/18 07:37 Est GFR (Non-Af Amer) > 60 06/18/18 07:37 POC Glucose (mg/dL) 115 mg/dL (65-110) H 06/19/18 11:42 Random Glucose 108 mg/dL (75-110) 06/18/18 07:37 Calcium 8.7 mg/dl (8.6-10.4) 06/18/18 07:37 Total Bilirubin 1.6 mg/dL (0.2-1.3) H 06/18/18 07:37 AST 30 U/L (17-59) 06/18/18 07:37 ALT 52 U/L (21-72) 06/18/18 07:37 Alkaline Phosphatase 72 U/L (38-126) 06/18/18 07:37 Total Protein 6.9 g/dL (6.3-8.3) 06/18/18 07:37 Albumin 3.8 g/dL (3.5-5.0) 06/18/18 07:37 Globulin 3.0 gm/dL (2.2-3.9) 06/18/18 07:37 Albumin/Globulin Ratio 1.3 (1.0-2.1) 06/18/18 07:37 Blood Type O POSITIVE 06/18/18 13:25 Antibody Screen Negative 06/18/18 13:25 - Hospital Course Hospital Course: Pt is a 48 y/o male, PMH of colon cancer and gastritis, s/p open incisional ventral hernia repair done by Dr. Rg on 06/18/18. Prior to surgery pt reported chronic abdominal pain at the site of the incisional hernia, but this has since resolved from surgery. Pt tolerated the surgery well and his post- operative pain has been adequately controlled with conservative medical management. He has complete bowel function with daily bowel movements for two days (with use of suppositories). He is tolerating a regular diet without any reported nausea or vomiting and is ambulating well. His surgical incision is covered by a JOHAN dressing that is suctioning properly, clean and dry. His surgical incision wound is healing well, without signs of bleeding, pus production or infection. He is afebrile, with normal heart rate and blood pressure. Pt will be discharged with instructions to f/u with Dr. Rg in his office in 1-2 weeks, and given pain control medication and stool softeners. Pt should avoid any strenuous physical activity and should not remove JOHAN dressing until cleared to do so at follow up visit. Discharge Exam - Head Exam Head Exam: ATRAUMATIC, NORMAL INSPECTION, NORMOCEPHALIC - Eye Exam Eye Exam: EOMI, Normal appearance - ENT Exam ENT Exam: Mucous Membranes Moist - Respiratory Exam Respiratory Exam: NORMAL BREATHING PATTERN. absent: Accessory Muscle Use - Cardiovascular Exam Cardiovascular Exam: REGULAR RHYTHM - GI/Abdominal Exam GI & Abdominal Exam: Soft. absent: Distended, Guarding Additional comments: surgical incision in epigastric area is covered in a JOHAN dressing that is clean and dry. - Neurological Exam Neurological exam: Alert, Oriented x3 - Skin Skin Exam: Normal Color, Warm Discharge Plan - Follow Up Plan Condition: GOOD Disposition: HOME/ ROUTINE Instructions: Abdominal Hernia (DC), Abdominal Hernia Repair, Open Surgery, Abdominal Hernia Repair (DC), Oxycodone and Acetaminophen Additional Instructions: Follow up with Dr. Rg at his office in 1-2 weeks. Keep JOHAN dressing on until follow up visit. Do not allow the dressing to get wet, cover with protective plastic whenever showering. Continue to ambulate daily but avoid any strenuous exercise or vigorous physical activity, such as heavy lifting, until follow up visit. Take colace 100mg as needed for constipation and x pain medication as needed for moderate pain. Referrals: Morgan Rg Jr., MD [Staff Provider] -
[2018-06-20] MEDS: Enoxaparin 30 mg Syringe SC SCH (10:07)
== END 2018-06-20 13:39 | disposition home or self-care (01) | DRG 908 ==
LOC: C.ER 15:30 → C.9E 16:29 → C.5S 18:21
PROVIDERS: ADMIT Surgery Vascular Surgery; ATTEND Surgery Vascular Surgery
PROC: 0WUF0JZ Supplement Abdominal Wall with Synthetic Substitute, Open Approach (ICD-10-PCS; 2018-06-18)
PROC: 0JQ80ZZ Repair Abdomen Subcutaneous Tissue and Fascia, Open Approach (ICD-10-PCS; principal; 2018-06-18 18:00)
DX: T81.32XA Disruption of internal operation (surgical) wound, not elsewhere classified, initial encounter (principal); K43.0 Incisional hernia with obstruction, without gangrene; J45.909 Unspecified asthma, uncomplicated; Z85.038 Personal history of other malignant neoplasm of large intestine; Z90.49 Acquired absence of other specified parts of digestive tract

== ENCOUNTER 2018-11-02 07:37 | Outpatient (CLI) | payer OTHER | END 2018-11-02 07:38 | disposition home or self-care (01) | LOC: C.LAB 07:37 | DX: C18.9 Malignant neoplasm of colon, unspecified (principal) ==

== ENCOUNTER 2018-12-19 11:54 | Emergency (ER) | payer OTHER ==
[2018-12-19 11:54] VITALS: BMI 30.7
[2018-12-19] MEDS ORDERED: Iohexol 240 (50 ml) PO STA (12:18)
[2018-12-19] MEDS ORDERED: Sodium Chloride 0.9% 1,000 ML IV ONE (12:18)
--- NOTE | 2018-12-19 12:31 | C.PDOC ---
History Of Present Illness 48 year old male with PMHx of Colon Cancer, Colon resection and incarcerated hernia repair presents to the ED complaining of abdominal pain that began this morning. Reports he called Dr. Rg's office and he was told to come to the ED for evaluation. Denies any fever, chills, nausea, vomiting, diarrhea, chest pain, back pain or urinary symptoms. Time Seen by Provider: 12/19/18 12:05 Chief Complaint (Nursing): Abdominal Pain History Per: Patient History/Exam Limitations: no limitations Onset/Duration Of Symptoms: Hrs Current Symptoms Are (Timing): Still Present Associated Symptoms: denies: Fever, Chills, Nausea, Vomiting, Diarrhea, Back Pain, Chest Pain, Urinary Symptoms Past Medical History Reviewed: Historical Data, Nursing Documentation, Vital Signs Vital Signs: Last Vital Signs Temp 97.6 F 12/19/18 11:57 Pulse 79 12/19/18 11:57 Resp 20 12/19/18 11:57 BP 153/116 H 12/19/18 11:57 Pulse Ox 98 12/19/18 11:57 - Medical History PMH: Anemia, Anxiety, Asthma ( A CHILD), Colonic Polyps (CANCEROUS), Gastritis Denies: Crohn's Disease, Diverticulitis, Fractures, Gall Bladder Disease, HIV, Pancreatitis, Chronic Kidney Disease, TIA Surgical History: Endoscopy - [facility] Procedures REPAIR ABDOMEN SUBCUTANEOUS TISSUE AND FASCIA, OPEN APPROACH (06/17/18) RESECTION OF APPENDIX, OPEN APPROACH (07/12/16) RESECTION OF LEFT LARGE INTESTINE, OPEN APPROACH (07/12/16) SUPPLEMENT ABDOMINAL WALL WITH SYNTH SUB, OPEN APPROACH (06/17/18) Family History: States: No Known Family Hx - Social History Hx Tobacco Use: No Hx Alcohol Use: Yes Hx Substance Use: No - Immunization History Hx Tetanus Toxoid Vaccination: No Hx Influenza Vaccination: No Hx Pneumococcal Vaccination: No Review Of Systems Except As Marked, All Systems Reviewed And Found Negative. Constitutional: Negative for: Fever, Chills Cardiovascular: Negative for: Chest Pain Respiratory: Negative for: Shortness of Breath Gastrointestinal: Positive for: Abdominal Pain. Negative for: Nausea, Vomiting, Diarrhea Genitourinary: Negative for: Dysuria, Hematuria Musculoskeletal: Negative for: Back Pain Physical Exam - Physical Exam Appears: Non-toxic, No Acute Distress Skin: Warm, Dry, No Rash Head: Normacephalic Eye(s): bilateral: Normal Inspection Nose: Normal Oral Mucosa: Moist Neck: Supple Chest: Symmetrical Cardiovascular: Rhythm Regular Respiratory: Normal Breath Sounds, No Rales, No Rhonchi, No Wheezing Gastrointestinal/Abdominal: Soft, Tenderness (tenderness to surgical site ), No Distention, No Guarding, No Rebound, Other (large midline incision ) Extremity: Bilateral: Normal Color And Temperature, Normal ROM Neurological/Psych: Oriented x3, Normal Speech Gait: Steady ED Course And Treatment - Laboratory Results Result Diagrams: 12/19/18 12:36 12/19/18 12:36 Lab Interpretation: Normal O2 Sat by Pulse Oximetry: 98 (RA) Pulse Ox Interpretation: Normal - CT Scan/US No standard instances Other Rad Studies (CT/US): Read By Radiologist, Radiology Report Reviewed CT/US Interpretation: FINDINGS: LOWER THORAX: No visible consolidation, pleural effusion, or pneumothorax. LIVER: Trace perihepatic fluid. Hypoattenuation of the liver compatible with hepatic steatosis. Too small to characterize hepatic hypodensities, statistically likely cysts or hemangiomas. GALLBLADDER AND BILE DUCTS: Unremarkable. PANCREAS: Unremarkable. SPLEEN: Unremarkable. ADRENALS: Unremarkable. KIDNEYS AND URETERS: The kidneys enhance symmetrically. No hydronephrosis or obstructing renal calculus. BLADDER: Urinary bladder thick walled out of proportion to under distension. REPRODUCTIVE: Unremarkable. APPENDIX: Not visualized; correlate for appendectomy. BOWEL: The stomach is nondistended. Evidence of ventral hernia repair. Dilated loops of small bowel within the right upper quadrant measuring up to 4 cm in diameter with probable fecalization of bowel contents; appearance concerning for small bowel obstruction. Transition point is not identified. Two focal regions of wall thickening and/or stricture at the left colon distal to anastomosis (seen on coronal image 56); malignant neoplasm is not excluded. Recommend further evaluation with colonoscopy. PERITONEUM: Small pelvic fluid, unusual in a young male patient. No definite free air. LYMPH NODES: No bulky lymphadenopathy identified. VASCULATURE: No aortic aneurysm. No atheroscler otic calcification or mural plaque present. BONES: Degenerative changes of the spine. Posterior osteophyte at T12-L1 with narrowing of the spinal canal. OTHER FINDINGS: None. IMPRESSION: Trace perihepatic fluid. Hypoattenuation of the liver compatible with hepatic steatosis. Too small to characterize hepatic hypodensities, statistically likely cysts or hemangiomas. Evidence of ventral hernia repair. Dilated loops of small bowel within the right upper quadrant measuring up to 4 cm in diameter with probable fecalization of bowel contents; appearance concerning for small bowel obstruction. Transition point is not identified. Two focal regions of wall thickening and/or stricture at the left colon distal to anastomosis; malignant neoplasm is not excluded. Recommend further evaluation with colonoscopy. Urinary bladder thick walled out of proportion to under distension. Recommend correlation with urinalysis. Small pelvic free fluid unusual in a young male patient. Additional findings as above. Progress Note: Treated with IVF NSS. Case discussed and patient evaluated by surgical consultant and Dr Rg who agree with discharge and follow up as ou tpatient Reassessment Condition: Improved - Physician Consult Information Physician Contacted: Morgan Rg Jr. Outcome Of Conversation: discharge Medical Decision Making Medical Decision Making: Plan - CT abd/pel w/ contrast - EKG - Bloodwork - Morphine 4mg IVP - IV fluids - UA Disposition Discussed With Dr.: Morgan Rg Jr. 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 - Scribe Statement The provider has reviewed the documentation as recorded by the Scribe Aruna Stark All medical record entries made by the Tra were at my direction and personally dictated by me. I have reviewed the chart and agree that the record accurately reflects my personal performance of the history, physical exam, medical decision making, and the department course for this patient. I have also personally directed, reviewed, and agree with the discharge instructions and disposition.
[2018-12-19 12:40] LABS: BASO # 0.1 K/uL (0.0-0.2); BASO % 0.7 % (0.0-2.0); EOS # 0.1 K/uL (0.0-0.7); EOS % 0.9 % (0.0-4.0); HEMOGLOBIN 15.9 g/dL (12.0-18.0); LYMPH # 1.3 K/uL (1.0-4.3); LYMPH % 16.6 % (20.0-40.0); MEAN CELL VOLUME 86.9 fL (80.0-94.0); MEAN CORPUSCULAR HEMOGLOBIN 29.3 pg (27.0-31.0); MEAN CORPUSCULAR HGB CONC 33.7 g/dL (33.0-37.0); MEAN PLATELET VOLUME 8.3 fL (7.2-11.7); MONO # 0.6 K/uL (0.0-0.8); MONO % 7.2 % (0.0-10.0); NEUT % 74.6 % (50.0-75.0); NRBC % 0.1 % (0.0-2.0); RBC 5.42 Mil/uL (4.40-5.90); RED CELL DISTRIBUTION WIDTH 12.8 % (11.5-14.5); WHITE BLOOD COUNT 8.1 K/uL (4.8-10.8)
[2018-12-19] MEDS ORDERED: Morphine 4 MG/ML VIAL ONE (12:42)
[2018-12-19] MEDS ORDERED: Iohexol 240 (50 ml) ONE (12:42)
[2018-12-19 13:06] LABS: ALB/GLOB RATIO 1.5 (1.0-2.1); ALBUMIN 4.8 g/dL (3.5-5.0); ALT/SGPT 13 U/L (21-72); AST/SGOT 31 U/L (17-59); BLOOD UREA NITROGEN 11 mg/dL (9-20); CALCIUM 9.1 mg/dl (8.6-10.4); GFR NON-AFRICAN AMERICAN > 60; LIPASE 60 U/L (23-300)
[2018-12-19 13:13] LABS: SQUAMOUS EPITHIAL < 1 /hpf (0-5); URINE BILIRUBIN NEGATIVE (NEGATIVE); URINE BLOOD NEGATIVE (NEGATIVE); URINE CLARITY Clear (Clear); URINE COLOR Yellow (YELLOW); URINE GLUCOSE (UA) NORMAL (Normal); URINE LEUKOCYTE ESTERASE NEG Leu/uL (Negative); URINE PROTEIN NEGATIVE (NEGATIVE); URINE UROBILINOGEN NORMAL mg/dL (0.2-1.0)
[2018-12-19 13:24] VITALS: RESP 12
[2018-12-19] MEDS ORDERED: Iodixanol 320 MG/ML 100 ML BOTTLE IV ONE (14:31)
--- NOTE | 2018-12-19 15:46 | CT ---
PROCEDURE: CT Abdomen and Pelvis with oral and IV contrast. HISTORY: pain COMPARISON: Ct ap without contrast performed 06/17/18 TECHNIQUE: Contiguous axial images of the abdomen and pelvis. Oral and IV contrast was administered. Coronal and Sagittal reformats generated and reviewed. Contrast dose: 100 mL Visipaque 320 IV Radiation dose: Total exam DLP = 1272.64 mGy-cm. This CT exam was performed using one or more of the following dose reduction techniques: Automated exposure control, adjustment of the mA and/or kV according to patient size, and/or use of iterative reconstruction technique. FINDINGS: LOWER THORAX: No visible consolidation, pleural effusion, or pneumothorax. LIVER: Trace perihepatic fluid. Hypoattenuation of the liver compatible with hepatic steatosis. Too small to characterize hepatic hypodensities, statistically likely cysts or hemangiomas. GALLBLADDER AND BILE DUCTS: Unremarkable. PANCREAS: Unremarkable. SPLEEN: Unremarkable. ADRENALS: Unremarkable. KIDNEYS AND URETERS: The kidneys enhance symmetrically. No hydronephrosis or obstructing renal calculus. BLADDER: Urinary bladder thick walled out of proportion to under distension. REPRODUCTIVE: Unremarkable. APPENDIX: Not visualized; correlate for appendectomy. BOWEL: The stomach is nondistended. Evidence of ventral hernia repair. Dilated loops of small bowel within the right upper quadrant measuring up to 4 cm in diameter with probable fecalization of bowel contents; appearance concerning for small bowel obstruction. Transition point is not identified. Two focal regions of wall thickening and/or stricture at the left colon distal to anastomosis (seen on coronal image 56); malignant neoplasm is not excluded. Recommend further evaluation with colonoscopy. PERITONEUM: Small pelvic fluid, unusual in a young male patient. No definite free air. LYMPH NODES: No bulky lymphadenopathy identified. VASCULATURE: No aortic aneurysm. No atherosclerotic calcification or mural plaque present. BONES: Degenerative changes of the spine. Posterior osteophyte at T12-L1 with narrowing of the spinal canal. OTHER FINDINGS: None. IMPRESSION: Trace perihepatic fluid. Hypoattenuation of the liver compatible with hepatic steatosis. Too small to characterize hepatic hypodensities, statistically likely cysts or hemangiomas. Evidence of ventral hernia repair. Dilated loops of small bowel within the right upper quadrant measuring up to 4 cm in diameter with probable fecalization of bowel contents; appearance concerning for small bowel obstruction. Transition point is not identified. Two focal regions of wall thickening and/or stricture at the left colon distal to anastomosis; malignant neoplasm is not excluded. Recommend further evaluation with colonoscopy. Urinary bladder thick walled out of proportion to under distension. Recommend correlation with urinalysis. Small pelvic free fluid unusual in a young male patient. Additional findings as above.
[2018-12-19 15:56] VITALS: O2SAT 98
[2018-12-19 16:05] VITALS: BP 139/90; PULSE 70; TEMP 98
--- NOTE | 2018-12-19 18:27 | CP.PCM.CON ---
History of Present Illness - History of Present Illness History of Present Illness: Surgery Consult Note- Dr. Rg Reason for Consult: Abdominal Pain 48M pmhx significant for Colon Ca s/p Colon resection incisional hernia repair x2 presents to [facility] ER w/ ramonita-umbilical to epigastric abdominal pain that started 1 day ago. Patient has had pain in the past however resolved. Admits to associated nausea, denies vomiting. Last time patient had pain like this, hernia was present. Last night ate [place] take out. Last BM was this morning, reported normal, and positive for flatus. Of note Last colonoscopy was 2017. Need for repeat c-scope PMH: Colon Cancer (2016) PSH: Colon Resection, Incision Hernia Repair x2 Allergies: NKDA SocialHx: Denies tobacco recreational drug use, social ETOH, Review of Systems - Review of Systems All systems: reviewed and no additional remarkable complaints except - Constitutional Constitutional: As Per HPI Past Patient History - Infectious Disease Hx of Infectious Diseases: None - Past Medical History & Family History Past Medical History?: Yes - Past Social History Smoking Status: Never Smoked - CARDIAC Hx Cardiac Disorders: No - PULMONARY Hx Asthma: Yes ( A CHILD) - NEUROLOGICAL Hx Transient Ischemic Attacks (TIA): No - HEENT Hx HEENT Problems: No - RENAL Hx Chronic Kidney Disease: No - ENDOCRINE/METABOLIC Hx Endocrine Disorders: No - HEMATOLOGICAL/ONCOLOGICAL Hx Anemia: Yes Hx Human Immunodeficiency Virus (HIV): No - INTEGUMENTARY Hx Dermatological Problems: No - MUSCULOSKELETAL/RHEUMATOLOGICAL Hx Fractures: No - GASTROINTESTINAL Hx Crohn's Disease: No Hx Diverticulitis: No Hx Gall Bladder Disease: No Hx Gastritis: Yes Hx Pancreatitis: No - GENITOURINARY/GYNECOLOGICAL Hx Genitourinary Disorders: No - PSYCHIATRIC Hx Anxiety: Yes Hx Substance Use: No - SURGICAL HISTORY Hx Herniorrhaphy: Yes (x2) Other/Comment: Colon resection - ANESTHESIA Hx Anesthesia: Yes Hx Anesthesia Reactions: Yes (Dizziness N/V) Hx Malignant Hyperthermia: No Meds Allergies/Adverse Reactions: Allergies Allergy/AdvReac Type Severity Reaction Status Date / Time No Known Allergies Allergy Verified 12/19/18 12:00 Physical Exam - Constitutional Appears: Non-toxic, No Acute Distress - Head Exam Head Exam: ATRAUMATIC - Eye Exam Eye Exam: EOMI. absent: Scleral icterus - ENT Exam ENT Exam: Mucous Membranes Moist - Respiratory Exam Respiratory Exam: NORMAL BREATHING PATTERN. absent: Accessory Muscle Use, Respiratory Distress - Cardiovascular Exam Cardiovascular Exam: REGULAR RHYTHM. absent: Bradycardia, Tachycardia - GI/Abdominal Exam GI & Abdominal Exam: Soft, Tenderness (superior portion of icnsion). absent: Distended, Firm, Guarding, Hernia - Neurological Exam Neurological exam: Alert, Oriented x3 - Psychiatric Exam Psychiatric exam: Normal Affect - Skin Skin Exam: Intact, Warm Results - Vital Signs Recent Vital Signs: Last Vital Signs Temp 98 F 12/19/18 16:04 Pulse 70 12/19/18 16:04 Resp 12 12/19/18 16:04 BP 139/90 12/19/18 16:04 Pulse Ox 98 12/19/18 17:51 - Labs Result Diagrams: 12/19/18 12:36 12/19/18 12:36 Labs: Laboratory Results - last 24 hr 12/19/18 12/19/18 12/19/18 12:36 12:36 13:04 WBC 8.1 RBC 5.42 Hgb 15.9 Hct 47.1 MCV 86.9 MCH 29.3 MCHC 33.7 RDW 12.8 Plt Count 227 MPV 8.3 Neut % (Auto) 74.6 Lymph % (Auto) 16.6 L Haakon % (Auto) 7.2 Eos % (Auto) 0.9 Baso % (Auto) 0.7 Neut # (Auto) 6.0 Lymph # (Auto) 1.3 Haakon # (Auto) 0.6 Eos # (Auto) 0.1 Baso # (Auto) 0.1 Sodium 135 Potassium 4.5 Chloride 102 Carbon Dioxide 24 Anion Gap 14 BUN 11 Creatinine 0.8 Est GFR ( Amer) > 60 Est GFR (Non-Af Amer) > 60 Random Glucose 106 Lactic Acid Calcium 9.1 Total Bilirubin 1.6 H AST 31 ALT 13 L D Alkaline Phosphatase 65 Total Protein 8.0 Albumin 4.8 Globulin 3.2 Albumin/Globulin Ratio 1.5 Lipase 60 Urine Color Yellow Urine Clarity Clear Urine pH 7.0 Ur Specific [place] 1.013 Urine Protein Negative Urine Glucose (UA) Normal Urine Ketones Negative Urine Blood Negative Urine Nitrate Negative Urine Bilirubin Negative Urine Urobilinogen Normal Ur Leukocyte Esterase Neg Urine RBC (Auto) < 1 Ur Squamous Epith Cells < 1 12/19/18 13:41 WBC RBC Hgb Hct MCV MCH MCHC RDW Plt Count MPV Neut % (Auto) Lymph % (Auto) Haakon % (Auto) Eos % (Auto) Baso % (Auto) Neut # (Auto) Lymph # (Auto) Haakon # (Auto) Eos # (Auto) Baso # (Auto) Sodium Potassium Chloride Carbon Dioxide Anion Gap BUN Creatinine Est GFR ( Amer) Est GFR (Non-Af Amer) Random Glucose Lactic Acid 1.5 Calcium Total Bilirubin AST ALT Alkaline Phosphatase Total Protein Albumin Globulin Albumin/Globulin Ratio Lipase Urine Color Urine Clarity Urine pH Ur Specific [place] Urine Protein Urine Glucose (UA) Urine Ketones Urine Blood Urine Nitrate Urine Bilirubin Urine Urobilinogen Ur Leukocyte Esterase Urine RBC (Auto) Ur Squamous Epith Cells Assessment & Plan - Assessment and Plan (Free Text) Assessment: 48M w/ abdominal pain, likely enteritis and pSBO currently resolved Plan: - recommend liquid diet then advance as tolerated - cleared for discharge from surgical standpoint - recommend f/u colonscopy as outpatient - discussed w/ Dr. Rg surgical attending PGY2
== END 2018-12-19 16:15 | disposition home or self-care (01) ==
LOC: C.ER 11:54
DX: R10.9 Unspecified abdominal pain (principal)
CPT/HCPCS: 74177; 80053; 81001; 83605; 83690; 85025; 96361; 96374; 99285; J2270; J7030; Q9966; Q9967